=== PATIENT | female | born 1945 | race Caucasian/White ===

== ENCOUNTER 2018-10-26 08:21 | Inpatient (IN) ==
--- NOTE | 2018-10-11 16:58 | PAT Medication Instructions ---
Medication Instructions Date of Service October 12, 2018 Home Medications Ca-D3-mag is-snbe-obc-jimmy-bor [Calcium 600-D3 Plus] 1 tab PO QPM acetaminophen 1,000 mg PO QID NEEDED atorvastatin 40 mg PO PM cyanocobalamin (vitamin B-12) [Vitamin B-12] 1,000 mcg PO QPM diltiazem HCl [DILT-XR] 240 mg PO QAM gabapentin 600 mg PO TID glimepiride 2 mg PO QAM metformin 1,000 mg PO BID metoprolol tartrate 50 mg PO QAM pioglitazone 15 mg PO QAM raloxifene 60 mg PO QPM sitagliptin [Januvia] 100 mg PO QPM sumatriptan succinate [Imitrex] 50 mg PO DAILY NEEDED DO NOT take the morning of surgery glimepiride 2 mg PO QAM metformin 1,000 mg PO BID pioglitazone 15 mg PO QAM sumatriptan succinate [Imitrex] 50 mg PO DAILY NEEDED Take morning of surgery With a small sip of water, OTHERWISE NOTHING TO EAT OR DRINK AFTER MIDNIGHT: diltiazem HCl [DILT-XR] 240 mg PO QAM gabapentin 600 mg PO TID metoprolol tartrate 50 mg PO QAM acetaminophen 1,000 mg PO QID NEEDED (if needed; stop 4 hours before surgery) Take evening before surgery Ca-D3-mag ah-krou-dcr-jimmy-bor [Calcium 600-D3 Plus] 1 tab PO QPM atorvastatin 40 mg PO PM cyanocobalamin (vitamin B-12) [Vitamin B-12] 1,000 mcg PO QPM gabapentin 600 mg PO TID metformin 1,000 mg PO BID sitagliptin [Januvia] 100 mg PO QPM raloxifene 60 mg PO QPM acetaminophen 1,000 mg PO QID NEEDED (if needed) sumatriptan succinate [Imitrex] 50 mg PO DAILY NEEDED (if needed) Other Notes If you have any questions please call us at [phone] or [phone] or [phone] or [phone]
--- NOTE | 2018-10-12 09:01 | Anesthesiology Consultation ---
Date of Service October 12, 2018 Assessment & Plan (1) Encounter for pre-operative examination: - No previous anesthesia records available. Chart Review Chart Review: Acceptable Risk for Surgery and Patient seen in Pre Admission Testing Consults Requested none Teaching & Discussion Pre-Anesthesia Teaching/Discussion Notes: Instructed NPO after midnight before surgery, except medications with 15 cc of water. Medication instructions provided according to the PAT guidelines. History Surgery Operation Date: 10/26/18 13:05 Proposed Procedures p C4-C5 Anterior Cervical Discectomy and Fusion, C6 Corpectomy, Spinal Cord Monitoring - Marlo Treviño DO Height/Weight Height: 5 ft 3 in Weight: 88.2 kg Allergies Allergy/AdvReac Type Severity Reaction Status Date / Time aspirin AdvReac Mild GI BLEEDING Verified 10/10/18 08:45 Medications Home Medications Medication Instructions Recorded Confirmed Last Taken Ca-D3-mag hv-yrht-uor-jimmy-bor 1 tab PO QPM 10/10/18 10/10/18 Unknown [Calcium 600-D3 Plus] acetaminophen 1,000 mg PO QID PRN 10/10/18 10/10/18 Unknown atorvastatin 40 mg PO PM 10/10/18 10/10/18 Unknown cyanocobalamin (vitamin B-12) 1,000 mcg PO QPM 10/10/18 10/10/18 Unknown [Vitamin B-12] diltiazem HCl [DILT-XR] 240 mg PO QAM 10/10/18 10/10/18 Unknown gabapentin 600 mg PO TID 10/10/18 10/10/18 Unknown glimepiride 2 mg PO QAM 10/10/18 10/10/18 Unknown metformin 1,000 mg PO BID 10/10/18 10/10/18 Unknown metoprolol tartrate 50 mg PO QAM 10/10/18 10/10/18 Unknown pioglitazone 15 mg PO QAM 10/10/18 10/10/18 Unknown raloxifene 60 mg PO QPM 10/10/18 10/10/18 Unknown sitagliptin [Januvia] 100 mg PO QPM 10/10/18 10/10/18 Unknown sumatriptan succinate [Imitrex] 50 mg PO DAILY PRN 10/10/18 10/10/18 Unknown Past Medical History Medical History Diabetes mellitus, type 2 History of GI bleed Hx of migraine headaches R/T WEATHER RELATED Hx of renal cell cancer Hyperlipidemia Hypertension Spinal stenosis in cervical region Exercise / Class Metabolic Activity II 4-5 Yardwork/Stairs/Walk up hill (Swims daily, shops, housework. Able to climb stairs if holding on to banister. Poor balance due to neck problems. Denie s CP or SOB with activity. ) Past Family History Family History Sister Family history of diabetes mellitus Sister Family history of diabetes mellitus Brother Family history of diabetes mellitus Aunt Family history of diabetes mellitus Past Surgical History Surgical History History of esophagogastroduodenoscopy (EGD) History of kidney surgery RIGHT SIDE TO HAVE "CANCER REMOVED"- THAT WAS LAYING ON TOP OF KIDNEY 09/10/2015 [facility] History of left knee replacement History of total right knee replacement Hx of appendectomy Hx of colonoscopy Hx of removal of cyst X3 LEFT BREAST Nausea and vomiting after administration of anesthetic agent Past Anesthesia History No Hx of Anesthesia Complications and No Family Hx of Anesthesia Complications History of PONV History of PONV and Hx of Motion Sickness (If in back seat) Social History Smoking Status: Never smoker Do You Dip or Chew Tobacco: No Hx Alcohol Use: No Hx Substance Use: No Review of Systems Patient denies chest pain, shortness of breath, dyspnea on exertion, reflux, cough, wheezing, palpitations. +Joint Pain (Neck, Left Wrist) Physical Exam Vital Signs BP: 131/63 P: 60 R: 16 T: 98.0 SPO2: 98% on RA ENMT Thyromental Distance: > or= 3.5 Finger Breadths (4) Mallampati Class: I Neck normal visual inspection; neck extension not limited Respiratory normal respiratory effort Auscultation: lungs clear to auscultation bilaterally Cardiovascular Rate/Rhythm: regular rate and regular rhythm Heart Sounds: no murmur Vessels: no carotid bruit Neurologic moves all extremities Psychiatric Orientation: alert and oriented x 3 Testing Laboratory Results PT 10.3 Seconds (9.0-12.0) 10/12/18 09:20 INR 1.0 (0.9-1.1) 10/12/18 09:20 APTT 25.6 Seconds (21.0-31.0) 10/12/18 09:20 Blood Type O Positive 10/12/18 09:20 Antibody Screen NEGATIVE 10/12/18 09:20 [facility] 10/05/18 WBC: 8.67 H/H: 12.0/38.4 PLATELETS: 308 SODIUM: 142 POTASSIUM: 5.0 CHLORIDE: 100 CO2: 28 BUN: 17 CREATININE: 1.0 GLUCOSE: 132 H UA: +moderate leuk esterase, 10-19 WBCs - Negative Culture HgBA1C: 7.9 Electrocardiogram Date: 10/05/18 Findings: + NSR @ (60) and + no change from (03/02/17) Chest X-Ray Date: 10/05/18 Findings: + NAD Echocardiogram Date: 10/11/18 EF: 55-60% LV Function: normal RWMA: + none Other Findings: + diastolic dysfunction (Grade I) Moderate aortic valve sclerosis is present. Stress Test Date: 08/27/15 Type: DSE Findings: + WNL Resting EF: 55-59% Resting LV Function: dysfunctional (mildly abnormal (grade I)) Mild aortic valve sclerosis is present. The stress echo is negative for inducible ischemia. The stress test was terminated due to target HR was achieved. No symptoms were noted. The HR and BP response to pharmacologic stress was normal.
[2018-10-12 11:30] LABS: Partial Thromboplastin Ratio 0.9; Partial Thromboplastin Time 25.6 Seconds (21.0-31.0); Prothrombin Time 10.3 Seconds (9.0-12.0)
[~2018-10-26 08:21] MED LIST: ACETAMINOPHEN 500 MG TAB PO SCH; CEFAZOLIN 2000MG 2,000 MG/15 ML SYR IV SCH; CeleBREX 200 MG CAP PO SCH; GABAPENTIN 300 MG CAP PO SCH; LR 15ML/HR IV SCH; SCOPOLAMINE 1.5 MG TDSY TD SCH
[2018-10-26] MEDS ORDERED: LIDOCAINE HCL 2% 2 ML VIAL/AMP(20MG/ML) INFIL ONE (08:27)
[2018-10-26] MEDS ORDERED: SUCCINYLCHOLINE CHLORIDE 20 MG/ML 10 ML VIAL ONE (08:27)
[2018-10-26] MEDS ORDERED: ROCURONIUM BROMIDE 10 MG/ML 5 ML VIAL ONE (08:27)
[2018-10-26] MEDS ORDERED: ONDANSETRON INJ 2 MG/ML 2 ML VIAL ONE (08:27)
[2018-10-26] MEDS ORDERED: NEOSTIGMINE METHYLSULFATE 1 MG/ML 10ML VIAL ONE (08:27)
[2018-10-26] MEDS ORDERED: PROPOFOL IV EMULSION 10 MG/ML 20 ML VIAL IV ONE (08:27)
[2018-10-26] MEDS ORDERED: DEXAMETHASONE SOD INJ 4 MG/ML VIAL ONE (08:27)
[2018-10-26] MEDS ORDERED: GLYCOPYRROLATE 0.2 MG/ML VIAL ONE (08:27)
[2018-10-26] MEDS ORDERED: fentaNYL citrate 100 MCG/2 ML VIAL ONE ×2 (08:28→10:29)
[2018-10-26] MEDS ORDERED: KETAMINE HCL INJ 50 MG/ML 10 ML VIAL ONE (08:28)
[2018-10-26] MEDS ORDERED: MIDAZOLAM HCL 1 MG/ML 2ML VIAL ONE (08:28)
[2018-10-26] MEDS ORDERED: ONDANSETRON INJ 2 MG/ML 2 ML VIAL IV PRN ×2 (09:15→14:18)
[2018-10-26] MEDS ORDERED: ATROPINE SULFATE 0.1 MG/ML 10ML SYR IV PRN (09:15)
[2018-10-26] MEDS ORDERED: fentaNYL citrate 100 MCG/2 ML VIAL IV PRN (09:15)
[2018-10-26] MEDS ORDERED: ePHEDrine sulfate 50 MG/ML AMP IV PRN (09:15)
--- NOTE | 2018-10-26 09:16 | History & Physical Bridge Note ---
Date of Service October 26, 2018 History & Physical Bridge Note I have examined the patient, reviewed the History & Physical and in the interval since the performance of the History & Physical I have noted the following changes of clinical significance: no changes noted
--- NOTE | 2018-10-26 09:17 | History & Physical Report ---
Date of Service October 26, 2018 Assessment & Plan (1) Cervical stenosis of spinal canal: Anterior cervical discectomy and fusion C4-5, C6 corpectomy Present on Admission?: Yes History of Present Illness Chief Complaint: Neck and arm pain Primary Care Provider: Magaly Velasco DO This is a 73-year-old female presents with worsening neck and arm symptoms. After failing extensive course of nonoperative care is here for surgical intervention. Allergies Allergy/AdvReac Type Severity Reaction Status Date / Time aspirin AdvReac Mild GI BLEEDING Verified 10/26/18 08:51 Home Medications Home Medications Medication Instructions Recorded Confirmed Type Ca-D3-mag ks-kdwp-eui-jimmy-bor 1 tab PO QPM 10/10/18 10/26/18 History [Calcium 600-D3 Plus] acetaminophen 1,000 mg PO QID PRN 10/10/18 10/26/18 History atorvastatin 40 mg PO PM 10/10/18 10/26/18 History cyanocobalamin (vitamin B-12) 1,000 mcg PO QPM 10/10/18 10/26/18 History [Vitamin B-12] diltiazem HCl [DILT-XR] 240 mg PO QAM 10/10/18 10/26/18 History gabapentin 600 mg PO TID 10/10/18 10/26/18 History glimepiride 2 mg PO QAM 10/10/18 10/26/18 History metformin 1,000 mg PO BID 10/10/18 10/26/18 History metoprolol tartrate 50 mg PO QAM 10/10/18 10/26/18 History pioglitazone 15 mg PO QAM 10/10/18 10/26/18 History raloxifene 60 mg PO QPM 10/10/18 10/26/18 History sitagliptin [Januvia] 100 mg PO QPM 10/10/18 10/26/18 History sumatriptan succinate [Imitrex] 50 mg PO DAILY PRN 10/10/18 10/26/18 History Past Med/Surg History Family History Sister Family history of diabetes mellitus Sister Family history of diabetes mellitus Brother Family history of diabetes mellitus Aunt Family history of diabetes mellitus Social History Preferred Language: Mohawk Communication Ability: Effective Beliefs That Will Affect Care: None Current Living Situation: Spouse Feels Safe at Home: Yes Smoking Status: Never smoker Do You Dip or Chew Tobacco: No ; Second Hand Exposure: No ; Hx Alcohol Use: No Hx Substance Use: No Physical Exam Physical Exam: Patient is alert and oriented neurologically intact. Results & Data Vital Signs (Past 12 Hours) Vital Signs Temp Pulse Resp BP Pulse Ox 10/26/18 08:55 36.7 C 75 20 156/74 H 96
[2018-10-26] MEDS ORDERED: BACITRACIN INJ 50,000 UNIT VIAL ONE (09:30)
[2018-10-26] MEDS ORDERED: FLOSEAL HEMOSTATIC MATRIX 10ML TOP ONE (10:05)
--- NOTE | 2018-10-26 11:42 | Operative Report ---
Post Operative Report Pre & Post Diagnosis Operation Date: 10/26/18 10:05 Pre-Op Diagnosis: Cervical spinal stenosis with myeloradiculopathy Post-Op Diagnosis: Same Procedure Operation Date: 10/26/18 10:05 Actual Procedures #1 Anterior cervical discectomy with bilateral foraminotomies C4-5. #2 anterior cervical corpectomy C6. #3 anterior cervical arthrodesis C4-C5 and C5- C7. #4 placement of Spira titanium cage 7 mm in height at C4-5 and 21 mm in height at C5-C7. #5 placement of locally harvested morselized autograft combined with DBM in the interbody cage. #6 application of colvin plate and screws from C4-C7. Surgeon Marlo Treviño, DO Human Resource Advisor Gin Romeo Estimated Blood Loss 100 Findings Consistent with Post-Op Diagnosis Specimens None Indications This is a 73-year-old female who presents with above-mentioned diagnosis after failing extensive course of nonoperative care like to undergo the above- mentioned procedure. Description of Procedure Patient was met with identified and informed consent obtained. Patient was then taken to the operative suite underwent intubation placed in supine position on the Pino table with head Tapia head paper tester. All bony prominences well- padded eyes inspected to ensure no external pressure placed upon them. This point the anterior cervical spine was prepped and draped in normal sterile fashion. We then identified the C5-6 disc patient transverse incision was placed along the right anterior aspect of the cervical spine overlying this region. Sharp dissection with the assistance of bipolar electric arteries performed down to and exposing the anterior cervical spine from C4-C7. Self- retaining retractors in place. And then performed a complete discectomy of C5-6 out to the uncovertebral joints bilaterally followed by C6-7. Diamond distracting pins were then placed in C5 and C7 to distract across the C6 vertebral body. A complete corpectomy was then performed including removal of all posterior annular fibers longitudinal ligament bilateral foraminotomies to address severe stenosis. Endplates were then burred to subcortical bleeding bone and a 21 mm titanium cage filled with locally harvested morselized autograft and DBM tapped in position. Then proceeded to see 4 5. Again complete discectomy was performed out to the uncovertebral joints bilaterally. I removed all posterior annular fibers and longitudinal ligament bilateral foraminotomies pleaded. The endplates were then burred to subcortical bleeding bone and a 7 mm titanium spiral cage filled with locally harvested morselized autograft and DBM tapped in position. All distraction apparatus was removed and a colvin plate and screws applied with the assistance of fluoroscopy. The incision was then copiously irrigated explored to ensure no demonstration bleeding. A 15 round LASHON drain inserted. The incision was then closed with 2 Vicryl in the fascia for Monocryl for final closure. Steri-Strip sterile dressings placed. Patient awakened taken to PACU stable condition. Please note Gin Romeo present throughout the entire procedure involved the patient positioning complex portions of the surgery and final skin closure. Lastly spinal cord monitoring was utilized that procedure no changes noted. I attest to the content of the Intraoperative Record and any orders documented therein. Any exceptions are noted below.
--- NOTE | 2018-10-26 12:24 | Fluoroscopy Report ---
FL cervical 2-3V CLINICAL HISTORY: C4-C5 ACDF, C6 CORPECTOMY COMPARISON STUDY: None. FLUOROSCOPY TIME: 14 seconds.. FINDINGS: 3 fluoroscopic spot images of the cervical spine demonstrate anterior cervical discectomy a nd fusion from C4 through C7 with a C6 corpectomy and metallic cage. The hardware appears intact. IMPRESSION: Fluoroscopy provided for C4-C7 ACDF. Electronically signed by: Fredo Lopez M.D. 10/26/2018 12:22 PM
[2018-10-26] MEDS ORDERED: PROMETHAZINE HCL 6.25 MG in SODIUM CHLORIDE 0.9% 50 ML IV ONE (13:00)
[2018-10-26] MEDS ORDERED: NovoLIN-R INSULIN PER UNIT CHARGE ONE (13:24)
--- NOTE | 2018-10-26 13:42 | Anesthesiology Progress Note ---
Date of Service October 26, 2018 Anesthesia Post Procedure Vital Signs Vital Signs: Temp Pulse Pulse Resp BP Pulse Ox 10/26/18 13:18 96.8 F L 60 15 159/71 H 96 10/26/18 13:05 65 15 146/70 H 96 10/26/18 12:55 55 L 14 157/74 H 95 10/26/18 12:45 56 L 15 158/73 H 94 10/26/18 12:35 61 14 162/70 H 96 10/26/18 12:25 66 18 160/81 H 95 10/26/18 12:15 66 18 159/85 H 95 10/26/18 12:05 64 18 164/80 H 96 10/26/18 11:58 98.4 F 73 16 182/82 H 95 10/26/18 08:55 98.1 F 75 20 156/74 H 96 Transfer of Care Handoff Completed per policy Notes Mental Status: alert / awake / arousable and participated in evaluation Patient Amnestic to Procedure: Yes Nausea / Vomiting: adequately controlled Pain: adequately controlled Airway Patency, RR, SpO2: stable & adequate BP & HR: stable & adequate Hydration State: stable & adequate Anesthetic Complications: no major complications apparent and Pt Satisfied with anesthetic care
[2018-10-26] MEDS ORDERED: RACEPINEPHRINE 2.25% NEBU SOLN 0.5 ML VIAL INH PRN (14:18)
[2018-10-26] MEDS ORDERED: DiphenhydrAMINE HCL 50 MG/ML VIAL IV PRN (14:18)
[2018-10-26] MEDS ORDERED: DEXAMETHASONE SOD PHOSPHATE 8 MG in SYRINGE 0 ML IV PRN (14:18)
[2018-10-26] MEDS ORDERED: SODIUM CHLORIDE 0.9% 1000ML 1,000 ML IV SCH (14:18)
[2018-10-26] MEDS ORDERED: SUMAtriptan succinate 50 MG TAB PO PRN (14:18)
[2018-10-26] MEDS ORDERED: LORazepam 0.5 MG TAB PO PRN (14:18)
[2018-10-26] MEDS ORDERED: ACETAMINOPHEN 500 MG TAB PO PRN (14:18)
[2018-10-26] MEDS ORDERED: LORazepam 0.5 MG/1 ML VIAL IV PRN (14:18)
[2018-10-26] MEDS ORDERED: NALOXONE HCL 0.4 MG/1 ML VIAL/CARP IV PRN (14:18)
[2018-10-26] MEDS ORDERED: DO NOT ADMINISTER PNEUMOCOCCAL VACCINE PRN (14:18)
[2018-10-26] MEDS ORDERED: OXYCODONE HCL IR 5 MG TAB (IMMEDIATE RELEASE) PO PRN (14:18)
[2018-10-26] MEDS ORDERED: DO NOT ADMINISTER FLU VACCINE PRN (14:18)
[2018-10-26] MEDS ORDERED: ACETAMINOPHEN 1,000 MG/100 ML VIAL IV PRN (14:18)
[2018-10-26] MEDS ORDERED: HYDROmorphone INJ 0.5 MG/0.5 ML SYR IV PRN (14:18)
[2018-10-26] MEDS ORDERED: MAGNESIUM HYDROXIDE SUSP 30 ML UDC PO PRN (14:18)
[2018-10-26] MEDS ORDERED: GLUCAGON FOR INJ 1 MG VIAL SQ PRN (15:13)
[2018-10-26] MEDS ORDERED: CARBOHYDRATES FOR HYPOGLYCEMIA PO PRN (15:13)
[2018-10-26] MEDS ORDERED: GLUCOSE 40% GEL 15 GM TUBE PO PRN (15:13)
[2018-10-26] MEDS ORDERED: GLUCOSE 10 TABS/TUBE PO PRN (15:13)
[2018-10-26] MEDS ORDERED: DEXTROSE 50% 50 ML SYRINGE IV PRN (15:13)
[2018-10-26] MEDS ORDERED: DOCUSATE SODIUM 100 MG CAP PO PRN (15:36)
--- NOTE | 2018-10-26 15:37 | Hospitalist Consultation ---
Date of Consultation October 26, 2018 Assessment & Plan (1) Spinal stenosis in cervical region: s/p ACDF by Dr. Treviño today - post-operative management including pain control, DVT prophylaxis per primary service (2) Diabetes mellitus, type 2: Last A1c on 10/05/18 was 7.9. Pt on four oral medications at home. Discussed with pt the use of insulin while admitted and she is agreeable - HOLD oral meds - Start baseline Lantus 12 units BID and sliding scale insulin - will adjust as needed - BSG ACHS - Diabetic diet (3) Diabetic neuropathy: - Continue outpatient gabapentin (4) B12 deficiency: - Continue vitamin B12 supplementation (5) Hx of migraine headaches: - Uses sumitriptan prn as outpatient (6) Hyperlipidemia: - Continue outpatient atorvastatin (7) Hypertension: - Continue outpatient Lopressor (pt took this AM) and monitor while admitted. Currently mildly elevated but pt reports being in pain. (8) Senile osteoporosis: - Pt is on raloxifene as outpatient Pt was seen and examined with collaborating physician, Dr. Schmitz. Plan of care discussed and as outlined above. Care to be assumed in the AM by Dr. Castillo. Thank you for this consultation. We will continue to follow pt with you. A member of the [facility] Hospitalist team is available 14/09 for any questions or concerns at [phone]. Julia Oneil PA-C Supervising Physician Co-Signing Physician Notes Patient is a 73-year-old female with history of diabetes, dyslipidemia, hypertension and other problems was seen and evaluated postop after having cervical discectomy for spinal stenosis with myeloradiculopathy. Patient is doing well postop. Neck pain is controlled. Denies any chest pain, shortness of breath, dizziness, nausea, abdominal pain. Reports mild sore throat. On exam patient is moderately built and nourished, no apparent distress, normocephalic atraumatic, neck--surgical site in dressing,+ drain, lungs are clear to auscultation, S1-S2, no murmur, abdomen soft nontender, chronic left lower extremity edema, grossly no focal neurological deficits. Patient is consulted for postop medical management. Pain control, activity, DVT prophylaxis per primary team. Monitor for postop anemia. Bowel regimen to prevent constipation. Diabetes--hold p.o. medications. Utilize insulin sliding scale, basal insulin while hospitalized. Monitor blood glucose levels. I personally reviewed the record. Patient is interviewed and examined at bedside. Patient's care is coordinated with Mariely Oneil PA-C . Please refer to the documentation above for details of patient's presentation and for discussion of other issues. History of Present Illness Reason for Consultation: Post-op Medical Management Attending Physician: Marlo Treviño, History of Present Illness This is a 73 y/o female with a PMH of diabetes, osteoporosis/cervical spinal stenosis, OA, migraine, LCIS of breast, renal cell carcinoma, HTN, dyslipidemia, and B12 deficiency who underwent ACDF by Dr. Treviño today. We have been consulted for post-operative medical management. Pt is seen post-operatively on the floor. When asked how she is doing she states "slowly waking up." At present, she complaints of some posterior neck pain as well as a mild CROWE and sore throat. She reports nausea post-operatively for which she was given medications with some improvement. At present, her appetite is decreased but she is trying small amounts of clear liquids when seen. She denies chest pain, palpitations, dyspnea, vomiting, numbness/tingling in extremities, abd pain or dysphagia. Her diabetes is managed with oral hypoglycemics as outpatient. She has only received insulin during admissions/around times of surgeries. Her last A1c was 10/05/18 and was 7.9. Allergies Allergy/AdvReac Type Severity Reaction Status Date / Time aspirin AdvReac Mild GI BLEEDING Verified 10/26/18 08:51 Home Medications Home Medications Medication Instructions Recorded Confirmed Type acetaminophen 1,000 mg PO QID PRN 10/10/18 10/26/18 History atorvastatin 40 mg PO PM 10/10/18 10/26/18 History cyanocobalamin (vitamin B-12) 1,000 mcg PO QPM 10/10/18 10/26/18 History [Vitamin B-12] diltiazem HCl [DILT-XR] 240 mg PO QAM 10/10/18 10/26/18 History gabapentin 600 mg PO TID 10/10/18 10/26/18 History glimepiride 2 mg PO QAM 10/10/18 10/26/18 History metformin 1,000 mg PO BID 10/10/18 10/26/18 History metoprolol tartrate 50 mg PO QAM 10/10/18 10/26/18 History pioglitazone 15 mg PO QAM 10/10/18 10/26/18 History raloxifene 60 mg PO QPM 10/10/18 10/26/18 History sitagliptin [Januvia] 100 mg PO QPM 10/10/18 10/26/18 History sumatriptan succinate [Imitrex] 50 mg PO DAILY PRN 10/10/18 10/26/18 History Calcium 600 600 mg PO DAILY 10/26/18 10/26/18 History Vitamin D3 1,000 units PO DAILY 10/26/18 10/26/18 History Patient History Family History Sister Family history of diabetes mellitus Sister Family history of diabetes mellitus Brother Family history of diabetes mellitus Aunt Family history of diabetes mellitus Social History Preferred Language: [place]ese Communication Ability: Effective Beliefs That Will Affect Care: None Current Living Situation: Spouse Feels Safe at Home: Yes Smoking Status: Never smoker Do You Dip or Chew Tobacco: No ; Second Hand Exposure: No ; Hx Alcohol Use: No Hx Substance Use: No Review of Systems Review of Systems: All systems reviewed & are unremarkable except as noted in HPI & below Constitutional: + anorexia; no fever and no chills Eyes: no diplopia and no worsening vision Ear, Nose, Mouth, Throat: + sore throat; no dysphagia Respiratory: no cough, no dyspnea and no wheezing Cardiovascular: + edema (chronic left > right LE edema); no chest pain, no palpitations, no lightheadedness and no calf pain Gastrointestinal: + nausea; no abdominal pain, no vomiting and no diarrhea/loose stools Genitourinary: no dysuria and no hematuria Musculoskeletal: + neck pain; no back pain Integumentary: no rash and no urticaria Neurologic: + headache(s) (mild); no paresthesia (in upper extremities) Physical Exam Constitutional: WD/WN, vitals as above + obese; no acute distress Eyes: + anicteric sclerae ENMT: external ear and nose normal, oropharynx normal Neck: Dressing C/D/I anterior neck with drain in place - small amount of sanguinous drainage Respiratory: normal respiratory effort, lungs clear to auscultation Auscultation: no rales, no rhonchi and no wheezes Cardiovascular: Rate/Rhythm: regular rate and regular rhythm Heart Sounds: no gallop, no murmur and no cardiac rub Extremities: + edema (left > right non-pitting - ANGELI stockings in place); no calf tenderness Gastrointestinal (Abdomen): Inspection/Auscultation: normal bowel sounds; abdomen not distended Percussion/Palpation: abdomen soft; abdomen nontender Musculoskeletal: Head/Neck/Chest: normocephalic and head atraumatic Extremities: no cyanosis and no clubbing Skin: no rashes, warm and dry no jaundice Neurologic: moves all extremities; no focal motor deficits Sensation to light touch intact bilaterally upper extremities Psychiatric: A+Ox3, euthymic affect Results & Data Vital Signs (Past 12 Hours) Vital Signs Temp Pulse Pulse Resp BP Pulse Ox Pulse Ox 10/26/18 15:31 77 18 96 10/26/18 15:15 76 18 158/81 H 96 10/26/18 14:45 36.2 C L 68 14 169/72 H 96 10/26/18 14:15 36.4 C L 70 14 158/69 H 96 96 10/26/18 13:35 65 15 153/73 H 97 10/26/18 13:25 70 16 162/76 H 96 10/26/18 13:15 36.0 C L 60 15 159/71 H 96 10/26/18 13:05 65 15 146/70 H 96 10/26/18 12:55 55 L 14 157/74 H 95 10/26/18 12:45 56 L 15 158/73 H 94 10/26/18 12:35 61 14 162/70 H 96 10/26/18 12:25 66 18 160/81 H 95 10/26/18 12:15 66 18 159/85 H 95 10/26/18 12:05 64 18 164/80 H 96 10/26/18 11:58 36.9 C 73 16 182/82 H 95 10/26/18 08:55 36.7 C 75 20 156/74 H 96 Laboratory Results 10/12/18 10/12/18 09:20 09:20 PT 10.3 INR 1.0 APTT 25.6 Blood Type O Positive Antibody Screen NEGATIVE (1) Diabetic neuropathy Diabetes mellitus complication detail: diabetic polyneuropathy Diabetes mellitus type: type 2 Qualified Code(s): E11.42 - Type 2 diabetes mellitus with diabetic polyneuropathy (2) Diabetes mellitus, type 2 Diabetes mellitus complication detail: with unspecified neuropathy Diabetes mellitus complication status: with neurologic complications Diabetes mellitus longterm insulin use: without continuous churn buttermaker use Qualified Code(s): E11.40 - Type 2 diabetes mellitus with diabetic neuropathy, unspecified (3) Hyperlipidemia Hyperlipidemia type: unspecified Qualified Code(s): E78.5 - Hyperlipidemia, unspecified (4) Hypertension Hypertension type: essential hypertension Qualified Code(s): I10 - Essential (primary) hypertension
[2018-10-26] MEDS ORDERED: CHECK SCOPOLAMINE PATCH PLACEMENT SCH (16:00)
[2018-10-26] MEDS: GABAPENTIN 600 MG TAB PO SCH ×2 (16:08→21:04)
[2018-10-26] MEDS: CEFAZOLIN 2000MG 2,000 MG/15 ML SYR IV SCH (17:34)
[2018-10-26] MEDS: INSULIN ASPART 100 UNITS/ML 3 ML PEN SC SCH ×2 (18:40→21:22)
[2018-10-26] MEDS ORDERED: CALCIUM 600MG + VIT D 400 IU TAB PO SCH (21:00)
[2018-10-26] MEDS ORDERED: ATORVASTATIN 40 MG TAB PO SCH (21:00)
[2018-10-26] MEDS ORDERED: CYANOCOBALAMIN 500 MCG TABLET (VITAMIN B-12) PO SCH (21:00)
[2018-10-26] MEDS ORDERED: RALOXIFENE HCL 60 MG TAB PO SCH (21:00)
[2018-10-26] MEDS ORDERED: SITAGLIPTIN PHOSPHATE 100 MG TAB PO SCH (21:00)
[2018-10-26] MEDS: INSULIN GLARGINE SOLOSTAR 100 UNITS/ML 3 ML PEN SC SCH (21:23)
[2018-10-27] MEDS: CEFAZOLIN 2000MG 2,000 MG/15 ML SYR IV SCH ×2 (01:26→09:35)
[2018-10-27] MEDS ORDERED: GLIMEPIRIDE 2 MG TAB PO SCH (07:30)
[2018-10-27] MEDS: GABAPENTIN 600 MG TAB PO SCH (08:16)
--- NOTE | 2018-10-27 08:48 | Discharge Summary ---
Date of Service October 27, 2018 Admission HPI Per Admitting Provider This is a 73-year-old female presents with worsening neck and arm symptoms. After failing extensive course of nonoperative care is here for surgical intervention. Principal Diagnosis Cervical spinal stenosis with myeloradiculopathy Discharge Data Allergies Allergy/AdvReac Type Severity Reaction Status Date / Time aspirin AdvReac Mild GI BLEEDING Verified 10/26/18 08:51 Consultations 10/26/18 14:18 Consult Hospitalist Routine Procedures Performed Operation Date: 10/26/18 10:05 Actual Procedures p C4-C5 Anterior Cervical Discectomy and Fusion, C6 Corpectomy, Spinal Cord Monitoring, placement of interbody C4-5 - Marlo Treviño DO Ordered Studies 10/26/18 10:05 FL cervical 2-3V Routine FL fluoroscopy <1hr Routine Hospital Course (1) Cervical stenosis of spinal canal: Patient underwent anterior cervical corpectomy discectomy and fusion tolerated as well as taken orthopedic for postoperative. Postop day 1 she is swallowing well tolerating fluids. No hoarseness. Arm symptoms markedly improved. Strength intact to testing. LASHON drain decreasing appropriately. Subsequently discharged home. Discharge orders instructions can be found chart for further review. Total Time Total Time Spent Total Time Spent (In Minutes): 20 minutes Discharge Plan Discharge Items Patient Disposition: Home - Self-Care Reason For Visit: Spinal Stenosis, Cervical Region Discharge Diagnosis: Cervical spinal stenosis with myeloradiculopathy Discharge Goals: Decrease discomfort Activity: Per 'Additional Instructions' section Non-emergency contact: Primary Care Provider Call non-emergency contact if: you have any medication questions Follow-up/Referrals: Magaly Velasco DO [Primary Care Provider] - Diet: Regular Addtl Provider Instructions: ACTIVITY RECOMMENDATIONS: SELF CARE INSTRUCTIONS AFTER CERVICAL FUSIONS 1. No smoking. Smoking drastically decreases the chance of a solid fusion. 2. No bending, lifting more than 5 pounds, or twisting (roll like a log when turning in bed). 3. You may shower 3 days after surgery. Thoroughly dry wound. Do not soak in the tub. 4. Cervical collar: Must be worn at all times including sleeping. You may remove the brace only to bath, eat and if you are sitting in a recliner. 5. Please walk as much as you can for exercise. Gradually increase the distance that you walk as your endurance increases. SPECIAL CARE INSTRUCTIONS: VERY IMPORTANT TO READ AND REVIEW A. Do not take any anti-inflammatory medications (i.e. Indocin, Advil, Aspirin, Naprosyn, Aleve, Motrin, etc.) as these may inhibit the chance of a solid fusion. Tylenol is okay to take. B. Your surgical incision has been closed with a cosmetic suture under the skin that will dissolve in about 6 weeks. In 14 days, you can use a pair of clean scissors and cut the suture that is left outside of the skin at the ends of your incision. C. Complications are uncommon, but please contact us if you have any signs or symptoms of: 1. wound infection (fever higher than 102.5 degrees F, redness, separation of wound, drainage, or increasing pain from the incision) 2. blood clots in legs (pain, swelling, redness and warmth in legs) 3. urinary tract infection (fever higher than 102.5 degrees, burning upon urination or increased frequency of urination) 4. nerve problems (inability to walk on your toes or heels, numbness, loss of bowel or bladder control) 5. any other symptoms that concern you. D. Please call the office at if you have any concerns or questions about your operation or recovery. MANAGING PAIN AFTER SPINAL SURGERY 1. Narcotic medication is intended for short-term use and will be provided for surgical pain. Surgical pain usually lasts for a period of 4-6 weeks. Narcotic medication includes Percocet, Vicodin, Darvocet, Tylenol #3 or Lortab. 2. Longer-term pain is more appropriately treated with non-narcotic medication such as Tylenol ES. 3. Muscle spasm is not appropriately treated with narcotics. Muscle relaxers such as Soma, Flexeril or Skelaxin can be used along with Tylenol ES. 4. Remember that we all live with some "aches and pains". This is not unusual or uncommon after an injury or as we get older. 5. We will provide appropriate medication within the normal guidelines of their prescribed use. We will also be very cautious and aware of potential abuse and extended duration of patients' medication needs. 6. Please allow 2-3 days to process refills. Prescriptions will not be mailed but must be picked up at the office. FOLLOW UP VISIT: Keep your scheduled follow-up appointment. Any questions, please call the office at . Prescriptions: New oxycodone 5 mg Tablet 5 mg PO Q4H PRN (Reason: Pain) Qty: 2 RF: 0 Continued pioglitazone 15 mg Tablet 15 mg PO QAM RF: 0 atorvastatin 40 mg Tablet 40 mg PO PM RF: 0 gabapentin 600 mg Tablet 600 mg PO TID RF: 0 diltiazem HCl [DILT-XR] 240 mg Capsule,Ext.Rel 24h Degradable 240 mg PO QAM RF: 0 sumatriptan succinate [Imitrex] 50 mg Tablet 50 mg PO DAILY PRN (Reason: SINUS HEADACHES) RF: 0 cyanocobalamin (vitamin B-12) [Vitamin B-12] 1,000 mcg Tablet 1,000 mcg PO QPM RF: 0 acetaminophen 500 mg Tablet 1,000 mg PO QID PRN (Reason: Pain) RF: 0 glimepiride 2 mg Tablet 2 mg PO QAM RF: 0 metformin 1,000 mg Tablet 1,000 mg PO BID RF: 0 metoprolol tartrate 50 mg Tablet 50 mg PO QAM RF: 0 raloxifene 60 mg Tablet 60 mg PO QPM RF: 0 Januvia 100 mg Tablet 100 mg PO QPM RF: 0 Calcium 600 600 mg PO DAILY RF: 0 Vitamin D3 1,000 units PO DAILY RF: 0 Stand-Alone Forms: [facility] Discharge Orders: Discharge Order (Routine); Ordered 10/27/18 Ordered By: Marlo Treviño Admission Data Admit Date/Time: 10/26/18 11:47 Attending Provider: Marlo Treviño Admit Provider: Marlo Treviño Primary Care Provider: Magaly Velasco Other Providers: Dg Castillo Service: Surgical Services
[2018-10-27] MEDS ORDERED: METOPROLOL TARTRATE 50 MG TAB PO SCH (09:00)
[2018-10-27] MEDS ORDERED: dilTIAZem HCL 240 MG CAPCR PO SCH (09:00)
[2018-10-27] MEDS ORDERED: PIOGLITAZONE HCL 15 MG TAB PO SCH (09:00)
[2018-10-27] MEDS: INSULIN ASPART 100 UNITS/ML 3 ML PEN SC SCH ×2 (09:23→12:31)
[2018-10-27] MEDS: INSULIN GLARGINE SOLOSTAR 100 UNITS/ML 3 ML PEN SC SCH (09:24)
[2018-10-28] MEDS ORDERED: POLYETHYLENE (MIRALAX) 17 GM PACK PO PRN (11:46)
[2018-10-28] MEDS ORDERED: BISACODYL 5 MG TABEC PO PRN (11:46)
== END 2018-10-27 13:34 | disposition home or self-care (01) | DRG 472 ==
LOC: ASU 08:21 → 3E 11:47

== ENCOUNTER 2018-10-29 21:48 | Observation (INO) ==
[2018-10-29] MEDS: NITROGLYCERIN SL 0.4 MG/TAB TAB SL PRN ×2 (22:13→22:47)
[2018-10-29 22:16] LABS: Basophils # (auto) 0.01 K/uL (0-0.2); Basophils % (auto) 0.1 %; Eosinophils # (auto) 0.09 K/uL (0-0.5); Eosinophils % (auto) 0.8 %; Hematocrit (blood only) 34.9 % (37-47); Hemoglobin 11.8 g/dL (12.0-16.0); Immature Granulocytes # (auto) 0.04 K/uL (0.00-0.02); Immature Granulocytes % (auto) 0.4 %; Lymphocytes # (auto) 2.26 K/uL (1.2-3.4); Mean Corpuscular Hemoglobin 29.3 pg (25-34); Mean Corpuscular Hgb Conc 33.8 g/dL (32-36); Mean Corpuscular Volume 86.6 fL (80-100); Mean Platelet Volume 10.5 fL (7.4-10.4); Monocytes # (auto) 1.05 K/uL (0.11-0.59); Monocytes % (auto) 9.3 %; Neutrophils # (auto) 7.83 K/uL (1.4-6.5); Neutrophils % (auto) 69.4 %; Platelet Count 279 K/uL (130-400); RDW Coefficient of Variation 14.1 % (11.5-14.5); RDW Standard Deviation 44.5 fL (36.4-46.3); Red Blood Count 4.03 M/uL (4.2-5.4); White Blood Count 11.28 K/uL (4.8-10.8)
--- NOTE | 2018-10-29 22:16 | XRay Report ---
XR chest 1V portable CLINICAL HISTORY: Atypical chest pain COMPARISON STUDY: No previous studies for comparison. FINDINGS: The heart is mildly enlarged. There is mild vascular prominence without evidence for overt failure. There are mild basilar atelectatic changes. There are no large pleural effusions. Postsurgic al changes are present within the cervical spine.[ IMPRESSION: 1. Cardiomegaly with mild vascular/interstitial prominence. No overt failure 2. Mild basilar atelectasis. Electronically signed by: Sung Messer M.D. 10/29/2018 10:14 PM
[2018-10-29 22:25] LABS: iSTAT Creatinine 0.7 mg/dl (0.6-1.3); iSTAT Hemoglobin 12.6 g/dl (12.0-16.0); iSTAT Ionized Calcium 1.14 mmol/l (1.12-1.32); iSTAT Potassium 3.7 mEq/L (3.3-5.0)
[2018-10-29 22:33] LABS: Alanine Aminotransferase 16 U/L (12-78); Albumin Level 3.1 gm/dl (3.4-5.0); Aspartate Aminotransferase 13 U/L (15-37); Blood Urea Nitrogen 10 mg/dl (7-18); Calcium 9.5 mg/dl (8.5-10.1); Carbon Dioxide 25 mmol/L (21-32); Chloride 99 mmol/L (98-107); Est GFR (African American) 82.9; Est GFR (Non-African American) 71.5; Glucose 201 mg/dl (70-99); Lipase 135 U/L (73-393); Potassium 3.7 mmol/L (3.5-5.1); Sodium 134 mmol/L (136-145)
[2018-10-29 22:36] LABS: Albumin Globulin Ratio 0.7 (0.9-2); Alkaline Phosphatase 63 U/L (45-117); Bilirubin,Total 0.8 mg/dl (0.2-1); Globulin 4.7 gm/dl (2.5-4.0); Total Protein 7.8 gm/dl (6.4-8.2)
[2018-10-29] MEDS ORDERED: fentaNYL citrate 100 MCG/2 ML VIAL IV STA (23:05)
[2018-10-29] MEDS ORDERED: ONDANSETRON INJ 2 MG/ML 2 ML VIAL IV STA (23:05)
[2018-10-29] MEDS ORDERED: OPTIRAY 320 125ml IV PRN (23:23)
[2018-10-30] MEDS ORDERED: NITROGLYCERIN 2% OINTMENT 30GM TUBE EXT ONE (00:28)
[2018-10-30] MEDS ORDERED: POLYETHYLENE (MIRALAX) 17 GM PACK PO PRN (02:20)
[2018-10-30] MEDS ORDERED: ACETAMINOPHEN 500 MG TAB PO PRN (02:20)
[2018-10-30] MEDS ORDERED: NITROGLYCERIN SL 0.4 MG/TAB TAB SL PRN (02:20)
[2018-10-30] MEDS ORDERED: ACETAMINOPHEN 325 MG TAB PO PRN (02:20)
[2018-10-30] MEDS ORDERED: OXYCODONE HCL IR 5 MG TAB (IMMEDIATE RELEASE) PO PRN (02:20)
[2018-10-30] MEDS ORDERED: ONDANSETRON INJ 2 MG/ML 2 ML VIAL IV PRN (02:20)
--- NOTE | 2018-10-30 02:28 | History and Physical Report ---
DATE OF ADMISSION: 10/29/2018 CHIEF COMPLAINT: Chest pain. HISTORY OF PRESENT ILLNESS: This is a 73-year-old female with past medical history significant for type 2 diabetes, hypertension, fatty liver, B12 deficiency, senile osteoporosis, osteoarthritis, history of cerebral meningioma, migraines, history of renal cell carcinoma, history of lobular carcinoma in situ of breast, history of cervical spinal stenosis, status post cervical spine surgery last Wednesday, was discharged home on Wednesday. She is still in a neck collar. The patient says since going home, she was doing okay, but then she developed during today'snight some chest pressure like feeling in the middle of the chest associated with some tingliness in the left hand and some numbness in the left leg. Before surgery, she has some tingliness and numbness in the left side that has not much improved, but today it got worse, therefore got worried and came to the hospital. Initial EKG showed some mild ST depression in leads V4, V5, but repeat EKG shows resolved st depressions with some nonspecific ST-T changes. Point of care troponin is negative. Given nitro in the ER, she still has some chest discomfort, starting on nitro paste. She does have headache now. No dizziness, no blurred visions, no earache, has some sore throat from the ETT tube during surgery. Some difficulty swallowing from her sore throat. She is on soft diet. Appetite is not that great. She was short of breath when this episode happened. She still feels some short of breath. Once in a while, she gets cough. Denies any fevers or chills, no nausea, no abdominal pain. Constipated with no bowel movements since last Wednesday, micturating fine. No pain while micturating. No hematuria. She has a chronic lower extremity edema. No rash. Currently resting comfortably and hemodynamically stable. ALLERGIES: ASPIRIN. PAST MEDICAL HISTORY: As mentioned above. PAST SURGICAL HISTORY: Left total knee arthroplasty, right total knee arthroplasty, left breast lesion excision, cauterization of ectropion, colonoscopy, EGDs, excision of breast lesion, knee arthroscopies, ligation of oviducts, partial removal of the kidney in 2016, tonsillectomy, adenoidectomy. MEDICATIONS: The patient is on oxycodone IR 5 mg p.o. q. 4 hours p.r.n., sumatriptan 50 mg p.o. p.r.n. migraines, metoprolol tartrate 50 mg p.o. daily, gabapentin 600 mg p.o. t.i.d., Januvia 100 mg p.o. daily, metformin 1000 mg p.o. b.i.d., glimepiride 2 mg p.o. daily, diltiazem XR 240 mg p.o. daily, Actos 50 mg p.o. daily, Evista 60 mg p.o. daily, Lipitor 40 mg p.o. daily, cyanocobalamin 1000 mcg daily, Tylenol 500 mg p.o. q. 6 hours p.r.n., calcium 600 mg p.o. daily, vitamin D 1000 units p.o. daily. FAMILY HISTORY: Significant for: Mother had arthritis. Father had MA. Brother had CAD. SOCIAL HISTORY: . No smoking, no alcohol, no drug use. REVIEW OF SYMPTOMS: As per HPI. Rest of review of systems is negative. PHYSICAL EXAMINATION: GENERAL: The patient is of moderate build, not in acute distress. VITAL SIGNS: Temperature 37.1, pulse 90, respiratory rate 17, blood pressure 157/92, oxygen 95% room air. HEENT: No pallor, no icterus. Pupils equal, round, reactive to light. Extraocular muscles intact. NECK: Neck collar. CARDIOVASCULAR: S1, S2 heard, regular rate and rhythm, no murmur, no gallop. RESPIRATORY SYSTEM: Normal AP diameter. No accessory muscle use. No wheezing, no crackles. ABDOMEN: Soft, bowel sounds present, nontender. No distention. CENTRAL NERVOUS SYSTEM: Cranial nerves II-XII grossly intact. Power 5/5 in upper extremities. Moves lower extremities. EXTREMITIES: Chronic lower extremity edema present, no erythema seen. LABORATORIES DATA: WBC is 11.2, hemoglobin 11.8, hematocrit 34.9, platelets 279. Sodium 134, potassium 3.7, chloride 99, CO2 of 25, BUN 10, creatinine 0.8, serum glucose 201, calcium 9.5, total bilirubin 0.8, AST 13, ALT 16, alkaline phosphatase 63. Point of care troponin less than 0.03. Lipase 135. IMAGING: Chest x-ray: No acute findings seen. CT of the chest, no PE, unofficial report. EKG: Shows normal sinus rhythm with rate of 80, nonspecific ST abnormality, mild ST depression in leads V4, V5. Repeat EKG, the ST depressions improved. ASSESSMENT AND PLAN: This is a 73-year-old female who presents with chest pain. 1. Chest pain, rule out acute coronary syndrome, risk factor of diabetes, hypertension, age, questionable ST depression in leads V4, V5 on intial EKG, improved on repeat ekg. Initial troponin is negative. Still has some chest discomfort. We will place on nitro paste 0.5 inch q. 6. Serial cardiac enzymes, echocardiogram, keep her n.p.o. and consult cardiology for further recommendations in a.m. 2. Still has some tingling and numbness, status post cervical spine surgery, on neck collar. She still has some tingliness and numbness in the left extremities, somewhat worse than before. We will consult orthopedics and may need PT/OT when the patient is stable. 3. Diabetes. Hold her home medications of glimepiride, Januvia, Metformin and Actos. We will place her on Lantus 5 units b.i.d., insulin sliding scale. Currently, the patient is n.p.o. We will follow HbA1c levels. Follow the blood sugars. 4. History of hypertension. Continue diltiazem and Lopressor. Monitor the blood pressure. 5. History of renal cancer, status post right partial nephrectomy. 6. History of migraine, on sumatriptan p.r.n. Continue her home pain medications. 7. History of vitamin B12 deficiency, on vitamin B12 supplements. 8. Deep venous thrombosis prophylaxis, SCDs. 9. Disposition: Admit to observation in tele floor. Expect discharge home and follow with her family doctor. Level 1 full code. PT and OT prior to discharge. Social Service will help with discharge planning. MISSAEL
[2018-10-30] MEDS ORDERED: GLUCOSE 40% GEL 15 GM TUBE PO PRN (02:45)
[2018-10-30] MEDS ORDERED: GLUCOSE 10 TABS/TUBE PO PRN (02:45)
[2018-10-30] MEDS ORDERED: DEXTROSE 50% 50 ML SYRINGE IV PRN (02:45)
[2018-10-30] MEDS ORDERED: CARBOHYDRATES FOR HYPOGLYCEMIA PO PRN (02:45)
[2018-10-30] MEDS ORDERED: GLUCAGON FOR INJ 1 MG VIAL SQ PRN (02:45)
[2018-10-30] MEDS ORDERED: MoRPHine SULFATE 4 MG/ML 1 ML CARP\\VIAL IV PRN (05:34)
[2018-10-30] MEDS: NITROGLYCERIN 2% OINTMENT 30GM TUBE EXT SCH ×4 (05:50→23:34)
[2018-10-30] MEDS ORDERED: LACTULOSE SYRUP 30 GM/45 ML UDP PO ONE (07:00)
[2018-10-30] MEDS ORDERED: BISACODYL 10 MG SUPP PR ONE (07:00)
[2018-10-30] MEDS: SODIUM CHLORIDE 0.9% 1000ML 1,000 ML IV SCH ×2 (07:49→22:33)
[2018-10-30] MEDS: dilTIAZem ER 120 MG CAPCR PO SCH (07:50)
[2018-10-30] MEDS: CHOLECALCIFEROL 1,000 UNITS TAB PO SCH (07:50)
[2018-10-30] MEDS: METOPROLOL TARTRATE 50 MG TAB PO SCH (07:50)
[2018-10-30] MEDS: GABAPENTIN 600 MG TAB PO SCH ×3 (07:50→20:15)
[2018-10-30] MEDS: CALCIUM 600MG + VIT D 400 IU TAB PO SCH (07:51)
[2018-10-30 08:25] LABS: Basophils # (auto) 0.01 K/uL (0-0.2); Basophils % (auto) 0.1 %; Eosinophils # (auto) 0.14 K/uL (0-0.5); Eosinophils % (auto) 1.3 %; Hematocrit (blood only) 35.4 % (37-47); Hemoglobin 11.7 g/dL (12.0-16.0); Immature Granulocytes # (auto) 0.05 K/uL (0.00-0.02); Immature Granulocytes % (auto) 0.5 %; Lymphocytes # (auto) 2.37 K/uL (1.2-3.4); Lymphocytes % (auto) 21.8 %; Mean Corpuscular Hgb Conc 33.1 g/dL (32-36); Mean Corpuscular Volume 87.6 fL (80-100); Mean Platelet Volume 10.1 fL (7.4-10.4); Monocytes # (auto) 0.94 K/uL (0.11-0.59); Monocytes % (auto) 8.7 %; Neutrophils # (auto) 7.34 K/uL (1.4-6.5); Neutrophils % (auto) 67.6 %; Platelet Count 275 K/uL (130-400); RDW Coefficient of Variation 14.2 % (11.5-14.5); RDW Standard Deviation 45.8 fL (36.4-46.3); Red Blood Count 4.04 M/uL (4.2-5.4); White Blood Count 10.85 K/uL (4.8-10.8)
[2018-10-30 08:42] LABS: BUN Creatinine Ratio 11.1 (10-20); Blood Urea Nitrogen 9 mg/dl (7-18); Calcium 9.3 mg/dl (8.5-10.1); Carbon Dioxide 28 mmol/L (21-32); Chloride 99 mmol/L (98-107); Creatinine Clr Calc Pharmacy 63.1 ml/min; Est GFR (African American) 84.2; Est GFR (Non-African American) 72.6; Glucose 205 mg/dl (70-99); Magnesium 1.8 mg/dl (1.8-2.4); Potassium 3.6 mmol/L (3.5-5.1); Sodium 136 mmol/L (136-145)
[2018-10-30 08:47] LABS: Troponin I < 0.015 ng/ml (0-0.045)
[2018-10-30] MEDS ORDERED: MAGNESIUM SULFATE / D5W 1 GM/100 ML BAG IV ONE (09:30)
--- NOTE | 2018-10-30 09:36 | Consultation ---
Date of Consultation October 30, 2018 Assessment & Plan (1) Cervical stenosis of spinal canal: Patient is currently undergoing a cardiac work-up in light of her symptoms but I do believe this is most likely related to her cervical spine. She has severe multilevel central stenosis preoperatively. She understands she might have continued numbness and paresthesia for quite some time while everything heals. Would ideally like to give her a dose or 2 of steroids but I understand she is a diabetic with a hemoglobin A1c of 7.9. I will leave this at the discretion of the hospitalist. Chest pain could have certainly, if not found to be cardiac in nature have been due to some possible acid reflux. This has resolved. She may have n.p.o. status removed and to try a soft diet. I will order x-rays to assess her hardware. No acute surgical indications at this point in time. We will continue to follow along. Supervising Physician Co-Signing Physician Notes Dr. Marlo Treviño History of Present Illness Requesting Physician: Dr. Chapman Reason for Consultation: Left greater than right upper extremity paresthesia and chest pain status post ACDF Attending Physician: Yohan Chapman MD History of Present Illness Susan is a pleasant 73-year-old female well-known to us. She is postoperative day 5 ACDF C4-C7. She had an uncomplicated postoperative course. She reports yesterday after dinner which was a soft diet of broth and Jell-O she had some substernal chest pain and she noticed paresthesias left greater than right hands and both feet. She does have established diabetic neuropathy affecting bilateral lower extremities. She presented to the emergency room and is currently undergoing a cardiac work-up. Symptoms are improved in her right hand. Preoperatively her left upper ex tremity had established paresthesia and numbness. She denies any shortness of breath. She is tolerating a soft diet. She is wearing her [place] J collar 14/09 with exception of eating and bathing at home. She amylase with a walker at home. Allergies Allergy/AdvReac Type Severity Reaction Status Date / Time aspirin AdvReac Mild GI BLEEDING Verified 10/29/18 22:16 Home Medications Home Medications Medication Instructions Recorded Confirmed Type Januvia 100 mg PO QPM 10/10/18 10/29/18 History acetaminophen 1,000 mg PO QID PRN 10/10/18 10/29/18 History atorvastatin 40 mg PO PM 10/10/18 10/29/18 History cyanocobalamin (vitamin B-12) 1,000 mcg PO QPM 10/10/18 10/29/18 History [Vitamin B-12] diltiazem HCl [DILT-XR] 240 mg PO QAM 10/10/18 10/29/18 History gabapentin 600 mg PO TID 10/10/18 10/29/18 History glimepiride 2 mg PO QAM 10/10/18 10/29/18 History metformin 1,000 mg PO BID 10/10/18 10/29/18 History metoprolol tartrate 50 mg PO QAM 10/10/18 10/29/18 History pioglitazone 15 mg PO QAM 10/10/18 10/29/18 History raloxifene 60 mg PO QPM 10/10/18 10/29/18 History sumatriptan succinate [Imitrex] 50 mg PO DAILY PRN 10/10/18 10/29/18 History oxycodone 5 mg PO Q4H PRN #20 tab 10/27/18 10/29/18 Rx calcium carbonate [Calcium 600] 600 mg PO DAILY 10/29/18 10/29/18 History cholecalciferol (vitamin D3) 1,000 unit PO DAILY 10/29/18 10/29/18 History [Vitamin D3] Patient History Medical History B12 deficiency Diabetes mellitus, type 2 Diabetic neuropathy Fatty liver History of GI bleed History of colon polyps 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 Hx of migraine headaches R/T WEATHER RELATED Hx of renal cell cancer Hyperlipidemia Hypertension Senile osteoporosis Spinal stenosis in cervical region Surgical History History of esophagogastroduodenoscopy (EGD) History of kidney surgery RIGHT SIDE TO HAVE "CANCER REMOVED"- THAT WAS LAYING ON TOP OF KIDNEY (partial right nephrectomy) 09/10/2015 [facility] History of left knee replacement History of tonsillectomy and adenoidectomy History of total right knee replacement History of tubal ligation Hx of appendectomy Hx of colonoscopy Hx of removal of cyst X3 LEFT BREAST Nausea and vomiting after administration of anesthetic agent Family History Sister Family history of diabetes mellitus Sister Family history of diabetes mellitus Brother Family history of diabetes mellitus Aunt Family history of diabetes mellitus Social History Preferred Language: Hebrew Communication Ability: Effective Fly Winder Required: No Beliefs That Will Affect Care: None Current Living Situation: Spouse Other Information That Helps Us Care for You: No Feels Safe at Home: Yes Safety Concerns: Feels Safe At This Time Smoking Status: Never smoker Do You Dip or Chew Tobacco: No ; Second Hand Exposure: No ; Tobacco Cessation Education Requested by Patient: No Hx Alcohol Use: No Hx Substance Use: No Review of Systems Review of Systems: All systems reviewed & are unremarkable except as noted in HPI & below Physical Exam Physical Exam: She is amatory with a walker and assistance of a nurse to a restroom when I entered. She is in no obvious distress. Alert and oriented x3. Dressing is clean dry and intact. This was removed for visual inspection. There is modest edema. No erythema. No drainage. [place] J is intact. Upper extremities 5/5 bilateral biceps, triceps, deltoid. Calves are soft nontender bilateral lower extremities. Motor testing strength is intact bilateral lower extremities. Results & Data Vital Signs (Past 12 Hours) Vital Signs Temp Pulse Pulse Pulse Resp BP BP 10/30/18 08:00 80 10/30/18 07:43 37.0 C 75 16 167/89 H 10/30/18 05:49 76 156/87 H 10/30/18 03:26 88 10/30/18 03:25 36.9 C 83 20 157/77 H 10/30/18 02:14 36.6 C 95 H 20 158/89 H 10/30/18 01:59 92 H 20 154/96 H 10/30/18 01:00 90 17 157/92 H 10/30/18 00:30 90 23 149/86 H 10/30/18 00:22 89 20 177/88 H 10/30/18 00:00 82 18 170/84 H 10/29/18 23:45 84 18 166/79 H 10/29/18 23:30 88 34 H 180/79 H 10/29/18 23:00 90 23 168/87 H 10/29/18 22:46 94 H 21 10/29/18 22:30 89 23 158/74 H 10/29/18 22:17 93 H 25 H 152/81 H 10/29/18 22:15 97 H 36 H 151/82 H 10/29/18 22:13 94 H 24 139/79 10/29/18 22:12 96 H 27 H 139/79 10/29/18 22:08 99 H 24 166/79 H 10/29/18 22:06 85 28 H 166/79 H 10/29/18 22:05 88 30 H 10/29/18 21:50 37.1 C 89 18 155/88 H Pulse Ox 10/30/18 08:00 10/30/18 07:43 92 10/30/18 05:49 10/30/18 03:26 10/30/18 03:25 95 10/30/18 02:14 93 10/30/18 01:59 94 10/30/18 01:00 95 10/30/18 00:30 94 10/30/18 00:22 94 10/30/18 00:00 97 10/29/18 23:45 96 10/29/18 23:30 93 10/29/18 23:00 93 10/29/18 22:46 10/29/18 22:30 94 10/29/18 22:17 93 10/29/18 22:15 92 10/29/18 22:13 95 10/29/18 22:12 93 10/29/18 22:08 93 10/29/18 22:06 92 10/29/18 22:05 94 10/29/18 21:50 95
[2018-10-30] MEDS: INSULIN ASPART 100 UNITS/ML 3 ML PEN SC SCH ×4 (09:56→21:05)
[2018-10-30] MEDS: INSULIN GLARGINE SOLOSTAR 100 UNITS/ML 3 ML PEN SC SCH ×3 (09:57→21:04)
--- NOTE | 2018-10-30 10:15 | CT Scan Report ---
CT ANGIOGRAM OF THE CHEST CLINICAL HISTORY: Atypical chest pain. Recent cervical spine surgery. COMPARISON STUDY: Chest x-ray dated 10/29/2018. TECHNIQUE: Following the IV administration of 116 cc of Optiray 320, CT angiogram of the chest was pe rformed from the upper abdomen to the thoracic inlet utilizing the pulmonary embolus protocol. Images are reviewed in the axial, sagittal, and coronal planes. 3-D MIPS images are created and assessed. I V contrast was administered without complication. A dose lowering technique was utilized adhering to the principles of ALARA. The examination is degraded by streak artifact from the arms which could no t be elevated above the chest. There is also motion artifact. CT DOSE: 663.08 mGy.cm FINDINGS: Thyroid: The thyroid gland appears mildly enlarged and heterogeneous. Low-attenuation thyroid nodules measure up to 4 mm. Thoracic aorta: The thoracic aorta is normal in caliber and demonstrates standard 3-vessel arch anato my. No dissection is seen. Pulmonary vasculature: The main pulmonary arteries appear dilated suggesting pulmonary artery hyperte nsion. There are no filling defects identified in main, lobar, or segmental pulmonary branches to sug gest pulmonary embolus. Heart: The heart is mildly enlarged and without pericardial effusion. The coronary arteries are dense ly calcified. Lungs and pleural spaces: Evaluation of the lung parenchyma is modestly degraded by motion artifact. There are small pleural effusions with significant bibasilar atelectasis. No airspace consolidation i s seen typical for pneumonia. A calcified granuloma is noted at the left lung base. Minimal secretion s are noted in the trachea. Lower neck: There is inflammatory change identified within the visualized pharyngeal soft tissues and in the prevertebral soft tissues, likely due to recent surgery. No cervical adenopathy is seen. Mediastinum: There is no mediastinal lymphadenopathy. Mya: Clear. Axillae: There is no axillary lymphadenopathy. Upper abdomen: Partially visualized upper abdominal viscera is within normal limits. Skeletal structures: The skeletal structures are osteopenic. No lytic or blastic bony lesions are see n. Fusion hardware is noted in the lower cervical spine. Degenerative change and hyperkyphosis are no kenan in the thoracic spine. Arthritic change is seen in the shoulders. IMPRESSION: 1. There is no evidence of pulmonary embolus in the main, lobar, or segmental pulmonary arteries. 2. Small pleural effusions with bibasilar atelectasis. 3. There is no airspace consolidation typical for pneumonia. 4. Mild cardiomegaly. 5. Fusion hardware is noted in the lower cervical spine. There is significant inflammatory change inv olving the pharyngeal and prevertebral soft tissues. This is likely related to recent surgery and cli nical correlation will be essential. 6. Additional findings as above. Electronically signed by: Munir Keene M.D. 10/30/2018 10:13 AM
[2018-10-30 11:32] LABS: Folate (Folic Acid) 14.74 ng/ml (>5.38)
--- NOTE | 2018-10-30 12:03 | Hospitalist Progress Note ---
Date of Service October 30, 2018 Assessment & Plan (1) Cervical stenosis of spinal canal: paresthesia symptoms and numbness -This is a 73 year old female with cervical spine surgery on 10/26/18 because of Cervical spinal stenosis with myeloradiculopathy (#1 Anterior cervical discectomy with bilateral foraminotomies C4-5. #2 anterior cervical corpectomy C6. #3 anterior cervical arthrodesis C4-C5 and C5- C7. #4 placement of Spira titanium cage 7 mm in height at C4-5 and 21 mm in height at C5-C7. #5 placement of locally harvested morselized autograft combined with DBM in the interbody cage. #6 application of colvin plate and screws from C4-C7) -Patient at home had symptoms of chest pressure like feeling in the middle of the chest associated with some tingling in the left hand and some numbness in the left leg -Patient was evaluated by orthopedics on 10/30/18 and suggest these paresthesia symptoms and numbness symptoms are not unusual given patient's pre-op diagnosis and subsequent operation. Orthopedics service suggested trying trial of steroids. Have discussed with patient and she does not want to do steroid trial at this time -further imaging of the neck ordered by orthopedics -continue neck collar -serum magnesium 1.8: magnesium supplements ordered -adequate B12, folic acid and TSH levels History of vitamin B12 deficiency -continue vitamin B12 supplements. Chest pain -On CTA: There is no evidence of pulmonary embolus in the main, lobar, or segmental pulmonary arteries. -troponins serially negative -echocardiogram: no change compared to previous 10/11/18 echo. 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 -continue Lantus 5 units b.i.d., insulin sliding scale. -HbA1c pending Hypertension -Continue diltiazem and Lopressor History of migraine -no acute headaches at this time History of renal cancer, status post right partial nephrectomy in the past Deep venous thrombosis prophylaxis, SCDs. Full Code Subjective Patient seen and examined. Has been having tingling/cramping sensations of the hands and tingling of the feet but these sensations improving over today. Patient also reports yesterday's acute chest discomforts are gone.no headache. no dizziness. no abdomen pain. no vomiting. Physical Exam Constitutional: comfortable Eyes: PERRL, conjunctivae normal, anicteric sclerae EOM intact bilaterally ENMT: external ear and nose normal, oropharynx normal Neck: neck brace Respiratory: normal respiratory effort, lungs clear to auscultation Cardiovascular: Rate/Rhythm: regular rate and regular rhythm Gastrointestinal (Abdomen): normal bowel sounds, soft, nontender, no hepatosplenomegaly Musculoskeletal: Head/Neck/Chest: normocephalic and head atraumatic Neurologic: PERRL, EOMI, accommodation nl, no face palsy, no dysarthria Psychiatric: A+Ox3, euthymic affect Results & Data Vital Signs (Past 12 Hours) Vital Signs Temp Pulse Pulse Pulse Resp BP BP 10/30/18 11:32 36.9 C 65 16 139/74 10/30/18 08:00 80 10/30/18 07:43 37.0 C 75 16 167/89 H 10/30/18 05:49 76 156/87 H 10/30/18 03:26 88 10/30/18 03:25 36.9 C 83 20 157/77 H 10/30/18 02:14 36.6 C 95 H 20 158/89 H 10/30/18 01:59 92 H 20 154/96 H 10/30/18 01:00 90 17 157/92 H 10/30/18 00:30 90 23 149/86 H 10/30/18 00:22 89 20 177/88 H Pulse Ox 10/30/18 11:32 95 10/30/18 08:00 10/30/18 07:43 92 10/30/18 05:49 10/30/18 03:26 10/30/18 03:25 95 10/30/18 02:14 93 10/30/18 01:59 94 10/30/18 01:00 95 10/30/18 00:30 94 10/30/18 00:22 94
[2018-10-30] MEDS: PANTOprazole 40 MG TAB PO SCH (12:09)
--- NOTE | 2018-10-30 13:39 | Consultation Report ---
DATE OF CONSULTATION: 10/30/2018 INPATIENT CARDIOLOGY CONSULTATION CONSULTATION REQUESTED BY: Dr. Bailey. REASON FOR CONSULTATION: Chest pain. HISTORY OF PRESENT ILLNESS: Mrs. Bazan is a 73-year-old woman, who is postop day 5 from cervical surgery. She presented to [facility] on 10/30/2018 with complaints of chest discomfort and worsening numbness and tingling down her arms. In the Emergency Department, she received sublingual nitroglycerin and she states that the pain resolved over the next 20-30 minutes. She describes it as a pressure sensation in her midsternal area at approximately the level of the third rib. She denies any previous similar episodes and states that the numbness down her bilateral upper extremities is worsening as well. Otherwise, she denies any shortness of breath, palpitations, lightheadedness, dizziness or syncope. She states the chest discomfort occurred when she was just sitting not doing any activities. PAST SURGICAL HISTORY: 1. Postop day #5 cervical spine surgery. 2. Bilateral total knees. 3. Breast surgery. 4. Colonoscopies. 5. Tubal ligation. 6. Partial nephrectomy. 7. Tonsil and adenoidectomy. 8. Upper endoscopy. MEDICAL ILLNESSES: 1. Cervical spinal stenosis status post surgery. 2. Diabetes. 3. Dyslipidemia. 4. Migraine. 5. Diabetic neuropathy. 6. Fatty liver. 7. Hypertension. FAMILY HISTORY: Noncontributory. SOCIAL HISTORY: Denies any alcohol, tobacco or recreational drug use. REVIEW OF SYSTEMS: As per HPI, all other review of systems reviewed and negative at this time. ALLERGIES: ASPIRIN CAUSES GI BLEEDING. MEDICATIONS AN OUTPATIENT: 1. Diltiazem 240 mg daily. 2. Metoprolol tartrate 50 mg daily. 3. Januvia. 4. Atorvastatin 40 mg daily. 5. Gabapentin. 6. Glimepiride. 7. Metformin. 8. Pioglitazone. 9. Raloxifene. 10. Oxycodone p.r.n. PHYSICAL EXAMINATION: VITALS: Temperature 36.9, pulse 65, respiratory rate 12, blood pressure 139/74. GENERAL: Awake, alert, and oriented x3, out of bed seated in a chair with a C collar in place, no acute distress. HEENT: Normocephalic, atraumatic. Pupils equal, round, reactive to light and accommodation. Extraocular muscles intact. Anicteric sclerae. Moist mucous membranes. NECK: No JVD, no bruit. CARDIOVASCULAR: Regular. Positive S4. Normal S1 and S2. No S3. No murmurs or rubs. PULMONARY: Clear to auscultation bilaterally. No rales, rhonchi or wheezing. ABDOMEN: Bowel sounds x4, soft. No rebound, guarding, tenderness. No organomegaly. EXTREMITIES: No clubbing, cyanosis or edema. +2 pedal pulses bilaterally. SKIN: Warm and dry. TEST RESULTS: A 2D echocardiogram was read as no change compared to previous study of 10/11/2018. Normal LV chamber size and wall thickness, normal LV systolic function, EF 55-60%, no segmental left ventricle wall motion abnormalities are noted, grade 1 diastolic dysfunction, moderate aortic valve sclerosis without stenosis. IMPRESSION: 1. Chest pain. 2. Postoperative day #5 from cervical spinal surgery involving the levels of C4-C7. 3. Diabetes. 4. Hypertension. 5. Dyslipidemia. 6. Diastolic dysfunction with normal left ventricular systolic function. RECOMMENDATIONS: Mrs. Bazan was counseled that her pain follows the C4 dermatome pattern that was recently intervened upon and given her normal wall motion on echocardiogram, I do not see any cardiac component to it. Given the fact that the nitroglycerin did help, I am wondering if there might be some possible GI component to it, so she will be started on Pepcid 20 mg b.i.d. Otherwise, no further cardiac testing or intervention is necessary at this time. No cardiac medications will be changed. No cardiac followup is necessary as an outpatient. It is okay to discharge the patient to home from a cardiac standpoint.
[2018-10-30] MEDS: FAMOTIDINE 20 MG TAB PO SCH ×2 (15:16→20:14)
--- NOTE | 2018-10-30 17:27 | XRay Report ---
CERVICAL SPINE 3 VIEWS CLINICAL HISTORY: Neck pain. Recent cervical spinal fusion. FINDINGS: AP, lateral, and odontoid views of the cervical spine are obtained. No prior studies are fo r comparison at the time of dictation. The skeletal structures are osteopenic. There is no radiograph ic evidence of fracture or subluxation. Vertebral body height and alignment are maintained. The spino laminar line is intact. Extensive postoperative change is identified, with anterior fusion seen from C4-C7. There has been corpectomy of C6, with discectomy at C4-C5. The orthopedic hardware appears int act. The spinous processes are preserved. The atlantodental articulation appears maintained. The odon toid process and lateral masses are intact as visualized on the open-mouth view. Multilevel facet art hropathy is observed. There is marked prevertebral soft tissue edema with small foci of deep soft tis veronika gas. The apical lung parenchyma is clear as imaged. IMPRESSION: 1. No acute osseous abnormality is identified involving the cervical spine. 2. Postoperative change from anterior spinal fusion as above. The orthopedic hardware appears intact. 3. There is marked prevertebral soft tissue edema with foci of deep soft tissue gas. This is nonspeci fic and likely related to recent surgery. Clinical correlation will be required. Electronically signed by: Munir Keene M.D. 10/30/2018 5:26 PM
--- NOTE | 2018-10-30 18:31 | Emergency Department Note ---
Entered by Mya Saldivar acting as a scribe for Fernando Mcclain MD History of Present Illness General Chief complaint: Cardiac Assessment Stated complaint: NECK PAIN ,ARM TINGLING,SOB, CHEST PRESSURE Source: patient History of Present Illness Provider complaint: chest pain Onset (ago): hour(s) (3.5) 3 Location: chest Maximum Pain Intensity: 8 Current Pain Intensity: 6 Quality: + other (pressure) Exacerbated By: + other (sitting up) Associated symptoms: + other (Positive difficulty breathing; Positive arm tingling; Positive leg tingling; Negative profusely sweating;) The patient, who is a 73 year old female with a medical history of , presents to the Emergency Room with complaints of chest pain that started 3.5 hours prior to arrival. The patient reports that she feels a constant pressure that is located in the center of his chest. The patient rates her pain intensity at a 6. The patient expresses that sitting up exacerbates her symptoms. The patient states that she has trouble breathing. The patient reports that she has tingling in her arms and legs. The patient denies profusely sweating. The patient denies a history of blood clots in her legs and lungs. The patient denies smoking or a family history of heart disease. She did recently undergo surgery for her neck. Home Medications Home Medications Medication Instructions Recorded Confirmed Type Januvia 100 mg PO QPM 10/10/18 10/29/18 History acetaminophen 1,000 mg PO QID PRN 10/10/18 10/29/18 History atorvastatin 40 mg PO PM 10/10/18 10/29/18 History cyanocobalamin (vitamin B-12) 1,000 mcg PO QPM 10/10/18 10/29/18 History [Vitamin B-12] diltiazem HCl [DILT-XR] 240 mg PO QAM 10/10/18 10/29/18 History gabapentin 600 mg PO TID 10/10/18 10/29/18 History glimepiride 2 mg PO QAM 10/10/18 10/29/18 History metformin 1,000 mg PO BID 10/10/18 10/29/18 History metoprolol tartrate 50 mg PO QAM 10/10/18 10/29/18 History pioglitazone 15 mg PO QAM 10/10/18 10/29/18 History raloxifene 60 mg PO QPM 10/10/18 10/29/18 History sumatriptan succinate [Imitrex] 50 mg PO DAILY PRN 10/10/18 10/29/18 History oxycodone 5 mg PO Q4H PRN #20 tab 10/27/18 10/29/18 Rx calcium carbonate [Calcium 600] 600 mg PO DAILY 10/29/18 10/29/18 History cholecalciferol (vitamin D3) 1,000 unit PO DAILY 10/29/18 10/29/18 History [Vitamin D3] Allergies Allergy/AdvReac Type Severity Reaction Status Date / Time aspirin AdvReac Mild GI BLEEDING Verified 10/29/18 22:16 Past Med/Surg History Medical History B12 deficiency Diabetes mellitus, type 2 Diabetic neuropathy Fatty liver History of GI bleed History of colon polyps 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 Hx of migraine headaches 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 WEATHER RELATED Hx of renal cell cancer Hyperlipidemia Hypertension Senile osteoporosis Spinal stenosis in cervical region Surgical History History of esophagogastroduodenoscopy (EGD) History of kidney surgery RIGHT SIDE TO HAVE "CANCER REMOVED"- THAT WAS LAYING ON TOP OF KIDNEY (partial right nephrectomy) 09/10/2015 [facility] History of left knee replacement History of tonsillectomy and adenoidectomy History of total right knee replacement History of tubal ligation Hx of appendectomy Hx of colonoscopy Hx of removal of cyst X3 LEFT BREAST Nausea and vomiting after administration of anesthetic agent Family History Sister Family history of diabetes mellitus Sister Family history of diabetes mellitus Brother Family history of diabetes mellitus Aunt Family history of diabetes mellitus Social History Preferred Language: Luxembourgish Communication Ability: Effective Employee Relations Manager Required: No Beliefs That Will Affect Care: None Current Living Situation: Spouse Other Information That Helps Us Care for You: No Feels Safe at Home: Yes Safety Concerns: Feels Safe At This Time Smoking Status: Never smoker Do You Dip or Chew Tobacco: No ; Second Hand Exposure: No ; Tobacco Cessation Education Requested by Patient: No Hx Alcohol Use: No Hx Substance Use: No Review of Systems See HPI for pertinent positives & negatives. and A total of 10 systems reviewed and were otherwise negative Physical Exam Vital Signs Vital Signs - 24 hr 10/29/18 21:50 10/29/18 22:03 10/29/18 22:05 Temperature 37.1 C Temperature Source Oral Sepsis Recent Fever Within 48 Hours No Sepsis Action Taken by Nursing No Action Required Pulse Rate 89 88 Pulse Rate [Left Apical] Pulse Rate from SpO2 Sensor 85 Pulse Rhythm [Left Apical] Pulse Strength [Left Apical] Respiratory Rate 18 30 H Respiratory Effort / Characteristics Labored Respiratory Depth Normal Shallow Respiratory Pattern Blood Pressure 155/88 H Blood Pressure [Left Arm] Blood Pressure Mean 110 Blood Pressure Mean [Left Arm] Blood Pressure Position [Left Arm] Pulse Oximetry 95 94 Oxygen Delivery Method Room Air Room Air 10/29/18 22:06 10/29/18 22:08 10/29/18 22:12 Temperature Temperature Source Sepsis Recent Fever Within 48 Hours Sepsis Action Taken by Nursing Pulse Rate 85 96 H Pulse Rate [Left Apical] 99 H Pulse Rate from SpO2 Sensor 86 95 H Pulse Rhythm [Left Apical] Regular Pulse Strength [Left Apical] Normal Respiratory Rate 28 H 24 27 H Respiratory Effort / Characteristics Non-Labored Spontaneous Respiratory Depth Normal Respiratory Pattern Regular Blood Pressure 166/79 H 139/79 Blood Pressure [Left Arm] 166/79 H Blood Pressure Mean 108 99 Blood Pressure Mean [Left Arm] 108 Blood Pressure Position [Left Arm] Lying Pulse Oximetry 92 93 93 Oxygen Delivery Method Room Air 10/29/18 22:13 10/29/18 22:15 10/29/18 22:17 Temperature Temperature Source Sepsis Recent Fever Within 48 Hours Sepsis Action Taken by Nursing Pulse Rate 97 H 93 H Pulse Rate [Left Apical] 94 H Pulse Rate from SpO2 Sensor 97 H 94 H Pulse Rhythm [Left Apical] Regular Pulse Strength [Left Apical] Normal Respiratory Rate 24 36 H 25 H Respiratory Effort / Characteristics Non-Labored Respiratory Depth Normal Respiratory Pattern Regular Blood Pressure 151/82 H 152/81 H Blood Pressure [Left Arm] 139/79 Blood Pressure Mean 105 104 Blood Pressure Mean [Left Arm] 99 Blood Pressure Position [Left Arm] Pulse Oximetry 95 92 93 Oxygen Delivery Method Room Air 10/29/18 22:30 10/29/18 22:46 10/29/18 23:00 Temperature Temperature Source Sepsis Recent Fever Within 48 Hours Sepsis Action Taken by Nursing Pulse Rate 89 94 H 90 Pulse Rate [Left Apical] Pulse Rate from SpO2 Sensor 89 90 Pulse Rhythm [Left Apical] Pulse Strength [Left Apical] Respiratory Rate 23 21 23 Respiratory Effort / Characteristics Respiratory Depth Respiratory Pattern Blood Pressure 158/74 H 168/87 H Blood Pressure [Left Arm] Blood Pressure Mean 102 114 Blood Pressure Mean [Left Arm] Blood Pressure Position [Left Arm] Pulse Oximetry 94 93 Oxygen Delivery Method 10/29/18 23:30 10/29/18 23:45 10/30/18 00:00 Temperature Temperature Source Sepsis Recent Fever Within 48 Hours Sepsis Action Taken by Nursing Pulse Rate 88 84 82 Pulse Rate [Left Apical] Pulse Rate from SpO2 Sensor 88 84 83 Pulse Rhythm [Left Apical] Pulse Strength [Left Apical] Respiratory Rate 34 H 18 18 Respiratory Effort / Characteristics Respiratory Depth Respiratory Pattern Blood Pressure 180/79 H 166/79 H 170/84 H Blood Pressure [Left Arm] Blood Pressure Mean 112 108 112 Blood Pressure Mean [Left Arm] Blood Pressure Position [Left Arm] Pulse Oximetry 93 96 97 Oxygen Delivery Method Room Air 10/30/18 00:22 10/30/18 00:30 10/30/18 01:00 Temperature Temperature Source Sepsis Recent Fever Within 48 Hours Sepsis Action Taken by Nursing Pulse Rate 90 90 Pulse Rate [Left Apical] 89 Pulse Rate from SpO2 Sensor 89 91 H Pulse Rhythm [Left Apical] Pulse Strength [Left Apical] Respiratory Rate 20 23 17 Respiratory Effort / Characteristics Respiratory Depth Respiratory Pattern Blood Pressure 149/86 H 157/92 H Blood Pressure [Left Arm] 177/88 H Blood Pressure Mean 107 113 Blood Pressure Mean [Left Arm] 117 Blood Pressure Position [Left Arm] Pulse Oximetry 94 94 95 Oxygen Delivery Method Room Air Room Air Constitutional: Vital signs reviewed. Eyes: Pupils are equal round reactive to light. Conjunctiva are noninjected. ENT: Pharynx is clear without erythema or exudate. Mucous membranes are moist. Neck is in a rigid cervical collar. Respiratory: Clear to auscultation bilaterally. Breath sounds are equal bilaterally. Cardiovascular: Regular rate and rhythm. No rubs or gallops. GI: Soft, nondistended and nontender. Bowel sounds are present. Musculoskeletal: No peripheral edema. No lower extremity tenderness. Integumentary: No cyanosis. Neurological: The patient is awake and alert. No focal deficits. Psychiatric: Anxious appearing. Course 2203: Past medical records reviewed. The patient was evaluated in room A10. A complete history and physical exam was performed. 2305: I reassessed the patient who states that her pain is down to a three after nitro treatment. She is agreeable to a CAT scan to rule out PE. 0028: I reassessed the patient who states that she has minimal pressure at this time. 0029: I reviewed the patient's case with Dr. Bailey, [facility] Hospitalist. He will evaluate the patient for further management. 0059: The patient is being evaluated by Dr. Bailey. Consultations Consultation #1: I reviewed the patient's case with Dr. Bailey, [facility] Hospitalist. He will evaluate the patient for further management. Time: 00:29 Administered Medications Acetaminophen (Tylenol) 650 mg PO Q4H PRN PRN Reason: Pain or Fever Stop: 11/29/18 02:19 Last Admin: 10/30/18 13:36 Dose: 650 mg Documented by: [id number] Diltiazem HCl (Tiazac) 240 mg PO QAM PRABHJOT Stop: 11/29/18 08:59 Last Admin: 10/30/18 07:50 Dose: 240 mg Documented by: [id number] Famotidine (Pepcid) 20 mg PO BID PRABHJOT Stop: 11/29/18 12:44 Last Admin: 10/30/18 15:16 Dose: 20 mg Documented by: [id number] Gabapentin (Neurontin) 600 mg PO TID PRABHJOT Stop: 11/29/18 08:59 Last Admin: 10/30/18 15:16 Dose: 600 mg Documented by: [id number] Admin: 10/30/18 07:50 Dose: 600 mg Documented by: [id number] Sodium Chloride (Nss 1000ml) 1,000 mls @ 60 mls/hr IV .[id number] PRABHJOT Stop: 11/29/18 06:44 Last Infusion: 10/30/18 11:18 Dose: 0 mls/hr Documented by: [id number] Infusion: 10/30/18 09:56 Dose: 0 mls/hr Documented by: [id number] Admin: 10/30/18 07:49 Dose: 60 mls/hr Documented by: [id number] Insulin Aspart (Novolog Flexpen) 0 units SC ACHS PRABHJOT Stop: 11/29/18 07:29 Last Admin: 10/30/18 17:45 Dose: 6 units Documented by: [id number] Cosigned by: [id number] Admin: 10/30/18 12:11 Dose: 6 units Documented by: [id number] Cosigned by: [id number] Admin: 10/30/18 09:56 Dose: Not Given Documented by: [id number] Cosigned by: [id number] Insulin Glargine (Lantus Solostar Pen) 5 units SC BID PRABHJOT Stop: 11/29/18 08:59 Last Admin: 10/30/18 12:09 Dose: 5 units Documented by: [id number] Cosigned by: [id number] Admin: 10/30/18 09:57 Dose: Not Given Documented by: [id number] Cosigned by: [id number] Metoprolol Tartrate (Lopressor) 50 mg PO QAM PRABHJOT Stop: 11/29/18 08:59 Last Admin: 10/30/18 07:50 Dose: 50 mg Documented by: [id number] Morphine Sulfate (Morphine Sulfate) 3 mg IV Q4H PRN PRN Reason: Pain Stop: 11/13/18 05:33 Last Admin: 10/30/18 05:52 Dose: 3 mg Documented by: [id number] Multivitamins/Minerals (Caltrate Plus) 1 tab PO DAILY PRABHJOT Stop: 11/29/18 08:59 Last Admin: 10/30/18 07:51 Dose: 1 tab Documented by: [id number] Nitroglycerin (Nitro-Bid 2%) 0.5 inch EXT Q6H PRABHJOT Stop: 11/29/18 13:58 Last Admin: 10/30/18 17:39 Dose: Not Given Documented by: [id number] Admin: 10/30/18 12:12 Dose: Not Given Documented by: [id number] Admin: 10/30/18 05:50 Dose: 0.5 inch Documented by: [id number] Pantoprazole Sodium (Protonix) 40 mg PO QAM PRABHJOT Stop: 11/03/18 10:14 Last Admin: 10/30/18 12:09 Dose: 40 mg Documented by: [id number] Vitamin D (Vitamin D3) 1,000 units PO DAILY PRABHJOT Stop: 11/29/18 08:59 Last Admin: 10/30/18 07:50 Dose: 1,000 units Documented by: [id number] Discontinued Medications Bisacodyl (Dulcolax) 10 mg OK NOW ONE Stop: 10/30/18 07:01 Last Admin: 10/30/18 09:56 Dose: Not Given Documented by: [id number] Fentanyl Citrate (Fentanyl Citrate) 50 mcg IV NOW STA Stop: 10/29/18 23:06 Last Admin: 10/29/18 23:11 Dose: 50 mcg Documented by: [id number] Magnesium Sulfate/Dextrose (Magnesium Sulfate / D5w) 1 gm in 100 mls @ 100 mls/hr IV 30 ONE Stop: 10/30/18 10:29 Last Infusion: 10/30/18 10:56 Dose: 0 mls/hr Documented by: [id number] Admin: 10/30/18 09:56 Dose: 100 mls/hr Documented by: [id number] Ioversol (Optiray 320 125ml) 116 ml IV ONCE PRN PRN Reason: Interaction Checking Stop: 11/02/18 23:22 Last Admin: 10/29/18 23:25 Dose: 116 ml Documented by: [id number] Lactulose (Chronulac) 30 gm PO NOW ONE Stop: 10/30/18 07:01 Last Admin: 10/30/18 07:50 Dose: 30 gm Documented by: [id number] Nitroglycerin (Nitrostat) 0.4 mg SL UD PRN PRN Reason: Chest Pain Stop: 11/28/18 22:02 Last Admin: 10/29/18 22:47 Dose: 0.4 mg Documented by: [id number] Admin: 10/29/18 22:13 Dose: 0.4 mg Documented by: [id number] Nitroglycerin (Nitro-Bid 2%) 1 inch EXT NOW ONE Stop: 10/30/18 00:29 Last Admin: 10/30/18 01:03 Dose: 1 inch Documented by: [id number] Ondansetron HCl (Zofran) 4 mg IV NOW STA Stop: 10/29/18 23:06 Last Admin: 10/29/18 23:11 Dose: 4 mg Documented by: [id number] Medical Decision Making Differential Diagnosis Differential diagnosis includes: unstable angina, myocardial infarction, pulmonary embolism, pleurisy, GERD as well as others were entertained. Medical Records Attestation: I reviewed the patient's medical records. The patient's record presents a cervical discectomy and effusion by Dr. Treviño o n October 26. Home Medications Current Medication List: was personally reviewed by me Laboratory Data Attestation: I reviewed the patient's lab results. Result diagrams: 10/30/18 08:13 10/30/18 08:13 Lab Results 10/29/18 10/29/18 10/29/18 Range/Units 22:00 22:00 22:09 WBC 11.28 H (4.8-10.8) K/uL RBC 4.03 L (4.2-5.4) M/uL Hgb 11.8 L (12.0-16.0) g/dL POC Hgb (12.0-16.0) g/dl Hct 34.9 L (37-47) % POC Hct (37-47) % MCV 86.6 (80-100) fL MCH 29.3 (25-34) pg MCHC 33.8 (32-36) g/dL RDW Std Deviation 44.5 (36.4-46.3) fL RDW Coeff of Marcela 14.1 (11.5-14.5) % Plt Count 279 (130-400) K/uL MPV 10.5 H (7.4-10.4) fL Immature Gran % (Auto) 0.4 % Neut % (Auto) 69.4 % Lymph % (Auto) 20.0 % [place] % (Auto) 9.3 % Eos % (Auto) 0.8 % Baso % (Auto) 0.1 % Immature Gran # (Auto) 0.04 H (0.00-0.02) K/uL Neut # (Auto) 7.83 H (1.4-6.5) K/uL Lymph # (Auto) 2.26 (1.2-3.4) K/uL [place] # (Auto) 1.05 H (0.11-0.59) K/uL Eos # (Auto) 0.09 (0-0.5) K/uL Baso # (Auto) 0.01 (0-0.2) K/uL POC Sodium (135-144) mEq/L Sodium 134 L (136-145) mmol/L POC Potassium (3.3-5.0) mEq/L Potassium 3.7 (3.5-5.1) mmol/L POC Chloride (101-112) mEq/L Chloride 99 (98-107) mmol/L Carbon Dioxide 25 (21-32) mmol/L POC Total CO2 (24-31) mEq/l Anion Gap 10.0 (3-11) POC Anion Gap (16-25) mmol/L POC BUN (7-18) mg/dl BUN 10 (7-18) mg/dl Creatinine 0.81 (0.6-1.2) mg/dl POC Creatinine (0.6-1.3) mg/dl Est Cr Clr Drug Dosing Not Reportable Est GFR ( Amer) 82.9 Est GFR (Non-Af Amer) 71.5 BUN/Creatinine Ratio 12.0 (10-20) Glucose 201 H (70-99) mg/dl POC Glucose (other) (70-99) mg/dl Calcium 9.5 (8.5-10.1) mg/dl POC Ioniz Calcium Krysten (1.12-1.32) mmol/l Total Bilirubin 0.8 (0.2-1) mg/dl AST 13 L (15-37) U/L ALT 16 (12-78) U/L Alkaline Phosphatase 63 (45-117) U/L POC Troponin I < 0.03 (0-0.045) ng/ml Total Protein 7.8 (6.4-8.2) gm/dl Albumin 3.1 L (3.4-5.0) gm/dl Globulin 4.7 H (2.5-4.0) gm/dl Albumin/Globulin Ratio 0.7 L (0.9-2) Lipase 135 (73-393) U/L 10/29/18 Range/Units 22:12 WBC (4.8-10.8) K/uL RBC (4.2-5.4) M/uL Hgb (12.0-16.0) g/dL POC Hgb 12.6 (12.0-16.0) g/dl Hct (37-47) % POC Hct 37 (37-47) % MCV (80-100) fL MCH (25-34) pg MCHC (32-36) g/dL RDW Std Deviation (36.4-46.3) fL RDW Coeff of Marcela (11.5-14.5) % Plt Count (130-400) K/uL MPV (7.4-10.4) fL Immature Gran % (Auto) % Neut % (Auto) % Lymph % (Auto) % [place] % (Auto) % Eos % (Auto) % Baso % (Auto) % Immature Gran # (Auto) (0.00-0.02) K/uL Neut # (Auto) (1.4-6.5) K/uL Lymph # (Auto) (1.2-3.4) K/uL [place] # (Auto) (0.11-0.59) K/uL Eos # (Auto) (0-0.5) K/uL Baso # (Auto) (0-0.2) K/uL POC Sodium 134 L (135-144) mEq/L Sodium (136-145) mmol/L POC Potassium 3.7 (3.3-5.0) mEq/L Potassium (3.5-5.1) mmol/L POC Chloride 98 L (101-112) mEq/L Chloride (98-107) mmol/L Carbon Dioxide (21-32) mmol/L POC Total CO2 24 (24-31) mEq/l Anion Gap (3-11) POC Anion Gap 17.0 (16-25) mmol/L POC BUN 8 (7-18) mg/dl BUN (7-18) mg/dl Creatinine (0.6-1.2) mg/dl POC Creatinine 0.7 (0.6-1.3) mg/dl Est Cr Clr Drug Dosing Est GFR ( Amer) Est GFR (Non-Af Amer) BUN/Creatinine Ratio (10-20) Glucose (70-99) mg/dl POC Glucose (other) 208 H (70-99) mg/dl Calcium (8.5-10.1) mg/dl POC Ioniz Calcium Krysten 1.14 (1.12-1.32) mmol/l Total Bilirubin (0.2-1) mg/dl AST (15-37) U/L ALT (12-78) U/L Alkaline Phosphatase (45-117) U/L POC Troponin I (0-0.045) ng/ml Total Protein (6.4-8.2) gm/dl Albumin (3.4-5.0) gm/dl Globulin (2.5-4.0) gm/dl Albumin/Globulin Ratio (0.9-2) Lipase (73-393) U/L Imaging Data Radiologist's Impression: Radiology results as stated below per my review and the radiologist's interpretation: CT CHEST With Contrast: Trace right greater than left pleural effusions. Associated atelectasis. Component of pneumonia at the left lung base is not excluded. No definite pulmonary embolus identified. No aortic aneurysm or dissection. Heterogeneous thyroid could be further evaluated with nonemergent dedicated ultrasound if clinically indicated. Punctate calcified granuloma at the left lung base. Fusion hardware partially visualized in the cervical spine. Radiologist: Isaac Cevallos M.D. Study ready at 23:31 and initial results transmitted at 00:22 XR chest 1V portable CLINICAL HISTORY: Atypical chest pain COMPARISON STUDY: No previous studies for comparison. FINDINGS: The heart is mildly enlarged. There is mild vascular prominence without evidence for overt failure. There are mild basilar atelectatic changes. There are no large pleural effusions. Postsurgical changes are present within t he cervical spine.[ IMPRESSION: 1. Cardiomegaly with mild vascular/interstitial prominence. No overt failure 2. Mild basilar atelectasis. Electronically signed by: Sung Messer M.D. 10/29/2018 10:14 PM ECG Data Attestation: I personally reviewed and interpreted this ECG as follows: Indication: chest pain Rate (beats per minute): 87 Rhythm: normal sinus Findings: + ST depression (V3 to V6); no ST elevation Comparison ECG Date: from (09/06/1998) Change: the following changes noted (abnormalities) Additional Comments: Repeat EKG shows: Normal sinus rhythm at 89 bpm. Significant improvement of ST depression from previous. No ST elevation or PVC. Blood Pressure Blood Pressure Findings: Elevated blood pressure Blood Pressure Disposition: Referred to patients primary care provider [facility] Narrative I did evaluate the patient as noted above. The patient is presenting with chest pressure and shortness of breath. IV access was established. The patient was placed on a continuous design specialist. I did order and personally review the patient's 12-lead EKG as described above. Her twelve-lead EKG demonstrates some ST depressions in the precordial leads as described above. These are new from her previous EKG, although that one was from 1998. I did treat the patient with sublingual nitroglycerin. Her pain went from a 6 to a 2:03 sublingual nitroglycerin. I did treat her with fentanyl and Zofran IV. I did order and personally reviewed the images of the patient's chest x-ray as described above. There is no evidence of acute infiltrate. I did order and review the patient's blood work as noted in the electronic medical record. Troponin is negative. Labs are otherwise unremarkable. I did reassess the patient. She still has some mild chest pain. After further discussion, I did order a CT angiogram of the chest. I did review the images myself as well as the radiology report as described above. There is no evidence of pulmonary embolism. I did reassess the patient. She has some slight chest pain and was given nitroglycerin paste. I did repeat a twelve-lead EKG which showed improvement of the ST depressions from earlier. I did discuss the test results with her. I did recommend hospitalization for further care and evaluation. I did discuss the case with the hospitalist and case loader operator. Impression & Plan Chest pain, precordial, Abnormal EKG Discharge Plan Visit Data *Final* Discharge Date/Time: 10/30/18 01:59 Chief Complaint: Cardiac Assessment Stated Complaint: NECK PAIN ,ARM TINGLING,SOB, CHEST PRESSURE ED Provider: Fernando Mcclain Discharge Problem: Chest pain, precordial, Abnormal EKG Patient Disposition: Admitted As Inpatient Discharge Instructions Interventions: ED Discharge Assessment Last Done: 10/30/18 01:59 The jennifer's documentation has been prepared under my direction and personally reviewed by me in its entirety. I confirm that the note above accurately reflects all work, treatment, procedures, and medical decision making performed by me.
[2018-10-30] MEDS ORDERED: RALOXIFENE HCL 60 MG TAB PO SCH (21:00)
[2018-10-30] MEDS ORDERED: ATORVASTATIN 40 MG TAB PO SCH (21:00)
[2018-10-30] MEDS ORDERED: CYANOCOBALAMIN 500 MCG TABLET (VITAMIN B-12) PO SCH (21:00)
[2018-10-31] MEDS: NITROGLYCERIN 2% OINTMENT 30GM TUBE EXT SCH (05:19)
[2018-10-31 06:16] LABS: Estimated Average Glucose 174 mg/dl; Hemoglobin A1C 7.7 % (4.5-5.6)
[2018-10-31] MEDS: GABAPENTIN 600 MG TAB PO SCH (07:30)
[2018-10-31] MEDS: PANTOprazole 40 MG TAB PO SCH (07:31)
[2018-10-31] MEDS: INSULIN GLARGINE SOLOSTAR 100 UNITS/ML 3 ML PEN SC SCH (07:31)
[2018-10-31] MEDS: CALCIUM 600MG + VIT D 400 IU TAB PO SCH (07:31)
[2018-10-31] MEDS: FAMOTIDINE 20 MG TAB PO SCH (07:31)
[2018-10-31] MEDS: dilTIAZem ER 120 MG CAPCR PO SCH (07:31)
[2018-10-31] MEDS: CHOLECALCIFEROL 1,000 UNITS TAB PO SCH (07:31)
[2018-10-31] MEDS: METOPROLOL TARTRATE 50 MG TAB PO SCH (07:31)
[2018-10-31] MEDS: INSULIN ASPART 100 UNITS/ML 3 ML PEN SC SCH (08:44)
--- NOTE | 2018-10-31 09:19 | Hospitalist Progress Note ---
Date of Service October 31, 2018 Assessment & Plan (1) Cervical stenosis of spinal canal: This is a 73 year old female with cervical spine surgery on 10/26/18 because of Cervical spinal stenosis with myeloradiculopathy (#1 Anterior cervical discectomy with bilateral foraminotomies C4-5. #2 a nterior cervical corpectomy C6. #3 anterior cervical arthrodesis C4-C5 and C5- C7. #4 placement of Spira titanium cage 7 mm in height at C4-5 and 21 mm in height at C5-C7. #5 placement of locally harvested morselized autograft combined with DBM in the interbody cage. #6 application of colvin plate and screws from C4-C7) -Patient at home had symptoms of chest pressure like feeling in the middle of the chest associated with some tingling in the left hand and some numbness in the left leg -cardiology work up is normal -Patient was evaluated by orthopedics on 10/30/18 and suggest these paresthesia symptoms and numbness symptoms are not unusual given patient's pre-op diagnosis and subsequent operation. Orthopedics service suggested trying trial of steroids. Have discussed with patient and she does not want to do steroid trial at this time Cervical neck X ray by orthopedics generally unremarkable 1. No acute osseous abnormality is identified involving the cervical spine. 2. Postoperative change from anterior spinal fusion as above. The orthopedic hardware appears intact. 3. There is marked prevertebral soft tissue edema with foci of deep soft tissue gas. This is nonspecific and likely related to recent surgery. -continue neck collar -serum magnesium 1.8 on 10/30/18 and IV magnesium was given adequate B12, folic acid and TSH levels Patient ambulating and paresthesia symptoms and numbness symptoms generally self resolving without acute interventions Patient should follow up with 11/07/2018 1:00 PM Provider Nazia Giraldo MD Department Internal Medicine [facility] and obtain repeat complete blood counts as she is recently post-op. Patient should discuss with primary care doctor on diabetes mellitus control. Hemoglobin A1c is 7.7. Patient may resume home medications. Patient may need tighter blood pressure control and should discuss with primary care doctor. Patient was recommended by cardiology service for trial of Pepcid twice a day in case initial chest symptoms were from gastric reflux. Patient may hold off further B12 supplements for now because B12 level is 970 pg/ml which is somewhat higher than reference ranges of normal. Patient should discuss with primary care doctor about further vitamin B12 supplement use. History of vitamin B12 deficiency -Patient may hold off further B12 supplements for now because B12 level is 970 pg/ml which is somewhat higher than reference ranges of normal. Patient should discuss with primary care doctor about further vitamin B12 supplement use. Chest pain -On CTA: There is no evidence of pulmonary embolus in the main, lobar, or segmental pulmonary arteries. -troponins serially negative -echocardiogram: no change compared to previous 10/11/18 echo. ejection fraction is 55 to 60% with no wall motion abnormality noted -Patient was recommended by cardiology service for trial of Pepcid twice a day in case initial chest symptoms were from gastric reflux -continue neuropathic pain medication of gabapentin Type 2 diabetes mellitus without termination clerk use of insulin -patient may resume home dose glimepiride, Januvia, Metformin and Actos on discharge -Patient should discuss with primary care doctor on diabetes mellitus control. Hemoglobin A1c is 7.7. Hypertension -Continue diltiazem and Lopressor -patient may need tighter blood pressure control and should discuss with primary care doctor History of migraine -no acute headaches at this time History of renal cancer, status post right partial nephrectomy in the past Deep venous thrombosis prophylaxis, SCDs. Full Code Discharge Diagnosis: Cervical stenosis of spinal canal; paresthesia symptoms and numbness; chest pain; hypertension; Type 2 diabetes mellitus without half-way use of insulin Subjective Patient denies chest pain overnight or today. denies paresthesia symptoms or numbness symptoms overnight or today. no dizziness. no headache. no shortness of breath. no vomiting. no abdomen pain. no palpitations. no acute telemetry events she has been ambulating well as per patient's nurse. patient would like to go home today discharge instructions and followups discussed at length Physical Exam Constitutional: comfortable Eyes: PERRL, conjunctivae normal, anicteric sclerae EOM intact bilaterally ENMT: external ear and nose normal, oropharynx normal Neck: normal visual inspection (neck collar in place) Respiratory: normal respiratory effort, lungs clear to auscultation Cardiovascular: Rate/Rhythm: regular rate and regular rhythm Gastrointestinal (Abdomen): normal bowel sounds, soft, nontender, no hepatosplenomegaly Musculoskeletal: Head/Neck/Chest: normocephalic and head atraumatic Neurologic: PERRL, EOMI, accommodation nl, no face palsy, no dysarthria Psychiatric: A+Ox3, euthymic affect Results & Data Vital Signs (Past 12 Hours) Vital Signs Temp Pulse Pulse Resp BP BP Pulse Ox 10/31/18 09:08 133/79 10/31/18 07:00 36.6 C 63 16 173/91 H 95 10/31/18 02:36 36.8 C 88 16 159/84 H 93 10/30/18 23:35 67 10/30/18 23:09 36.7 C 73 16 158/87 H 95
--- NOTE | 2018-10-31 09:29 | Discharge Summary ---
Date of Service October 31, 2018 Admission HPI Per Admitting Provider HISTORY OF PRESENT ILLNESS: This is a 73-year-old female with past medical history significant for type 2 diabetes, hypertension, fatty liver, B12 deficiency, senile osteoporosis, osteoarthritis, history of cerebral meningioma, migraines, history of renal cell carcinoma, history of lobular carcinoma in situ of breast, history of cervical spinal stenosis, status post cervical spine surgery last Wednesday, was discharged home on Wednesday. She is still in a neck collar. The patient says since going home, she was doing okay, but then she developed during today'snight some chest pressure like feeling in the middle of the chest associated with some tingliness in the left hand and some numbness in the left leg. Before surgery, she has some tingliness and numbness in the left side that has not much improved, but today it got worse, therefore got worried and came to the hospital. Initial EKG showed some mild ST depression in leads V4, V5, but repeat EKG shows resolved st depressions with some nonspecific ST-T changes. Point of care troponin is negative. Given nitro in the ER, she still has some chest discomfort, starting on nitro paste. She does have headache now. No dizziness, no blurred visions, no earache, has some sore throat from the ETT tube during surgery. Some difficulty swallowing from her sore throat. She is on soft diet. Appetite is not that great. She was short of breath when this episode happened. She still feels some short of breath. Once in a while, she gets cough. Denies any fevers or chills, no nausea, no abdominal pain. Constipated with no bowel movements since last Wednesday, micturating fine. No pain while micturating. No hematuria. She has a chronic lower extremity edema. No rash. Currently resting comfortably and hemodynamically stable. ALLERGIES: ASPIRIN. PAST MEDICAL HISTORY: As mentioned above. PAST SURGICAL HISTORY: Left total knee arthroplasty, right total knee arthroplasty, left breast lesion excision, cauterization of ectropion, colonoscopy, EGDs, excision of breast lesion, knee arthroscopies, ligation of oviducts, partial removal of the kidney in 2016, tonsillectomy, adenoidectomy. MEDICATIONS: The patient is on oxycodone IR 5 mg p.o. q. 4 hours p.r.n., sumatriptan 50 mg p.o. p.r.n. migraines, metoprolol tartrate 50 mg p.o. daily, gabapentin 600 mg p.o. t.i.d., Januvia 100 mg p.o. daily, metformin 1000 mg p.o. b.i.d., glimepiride 2 mg p.o. daily, diltiazem XR 240 mg p.o. daily, Actos 50 mg p.o. daily, Evista 60 mg p.o. daily, Lipitor 40 mg p.o. daily, cyanocobalamin 1000 mcg daily, Tylenol 500 mg p.o. q. 6 hours p.r.n., calcium 600 mg p.o. daily, vitamin D 1000 units p.o. daily. FAMILY HISTORY: Significant for: Mother had arthritis. Father had HI. Brother had CAD. SOCIAL HISTORY: . No smoking, no alcohol, no drug use. REVIEW OF SYMPTOMS: As per HPI. Rest of review of systems is negative. Admission Exam Per Admitting Provider PHYSICAL EXAMINATION: GENERAL: The patient is of moderate build, not in acute distress. VITAL SIGNS: Temperature 37.1, pulse 90, respiratory rate 17, blood pressure 157/92, oxygen 95% room air. HEENT: No pallor, no icterus. Pupils equal, round, reactive to light. Extraocular muscles intact. NECK: Neck collar. CARDIOVASCULAR: S1, S2 heard, regular rate and rhythm, no murmur, no gallop. RESPIRATORY SYSTEM: Normal AP diameter. No accessory muscle use. No wheezing, no crackles. ABDOMEN: Soft, bowel sounds present, nontender. No distention. CENTRAL NERVOUS SYSTEM: Cranial nerves II-XII grossly intact. Power 5/5 in upper extremities. Moves lower extremities. EXTREMITIES: Chronic lower extremity edema present, no erythema seen. Principal Diagnosis Cervical stenosis of spinal canal; paresthesia symptoms and numbness; chest pain; hypertension; Type 2 diabetes mellitus without mcc use of insulin Discharge Exam Constitutional comfortable Eyes PERRL, conjunctivae normal, anicteric sclerae EOM intact bilaterally ENMT external ear and nose normal, oropharynx normal Neck normal visual inspection (neck collar in place) Respiratory normal respiratory effort, lungs clear to auscultation Cardiovascular Rate/Rhythm: regular rate and regular rhythm Gastrointestinal (Abdomen) normal bowel sounds, soft, nontender, no hepatosplenomegaly Musculoskeletal Head/Neck/Chest: normocephalic and head atraumatic Neurologic PERRL, EOMI, accommodation nl, no face palsy, no dysarthria Psychiatric A+Ox3, euthymic affect Discharge Data Allergies Allergy/AdvReac Type Severity Reaction Status Date / Time aspirin AdvReac Mild GI BLEEDING Verified 10/29/18 22:16 Consultations 10/30/18 00:28 ED Decision to Admit Stat 10/30/18 02:20 Consult Case Management - Discharge Planning Routine 10/30/18 08:00 Consult Cardiology Routine Consult Orthopedic Surgery Routine Ordered Studies 10/29/18 23:05 CT angio chest PE protocol Stat 10/30/18 09:30 FL cervical 2-3V Routine Hospital Course (1) Cervical stenosis of spinal canal: This is a 73 year old female with cervical spine surgery on 10/26/18 because of Cervical spinal stenosis with myeloradiculopathy (#1 Anterior cervical discectomy with bilateral foraminotomies C4-5. #2 anterior cervical corpectomy C6. #3 anterior cervical arthrodesis C4-C5 and C5- C7. #4 placement of Spira titanium cage 7 mm in height at C4-5 and 21 mm in height at C5-C7. #5 placement of locally harvested morselized autograft combined with DBM in the interbody cage. #6 application of colvin plate and screws from C4-C7) -Patient at home had symptoms of chest pressure like feeling in the middle of the chest associated with some tingling in the left hand and some numbness in the left leg -cardiology work up is normal -Patient was evaluated by orthopedics on 10/30/18 and suggest these paresthesia symptoms and numbness symptoms are not unusual given patient's pre-op diagnosis and subsequent operation. Orthopedics service suggested trying trial of steroids. Have discussed with patient and she does not want to do steroid trial at this time Cervical neck X ray by orthopedics generally unremarkable 1. No acute osseous abnormality is identified involving the cervical spine. 2. Postoperative change from anterior spinal fusion as above. The orthopedic hardware appears intact. 3. There is marked prevertebral soft tissue edema with foci of deep soft tissue gas. This is nonspecific and likely related to recent surgery. -continue neck collar -serum magnesium 1.8 on 10/30/18 and IV magnesium was given adequate B12, folic acid and TSH levels Patient ambulating and paresthesia symptoms and numbness symptoms generally self resolving without acute interventions Patient should follow up with 11/07/2018 1:00 PM Provider Nazia Giraldo MD Department Internal Medicine [facility] and obtain repeat complete blood counts as she is recently post-op. Patient should discuss with primary care doctor on diabetes mellitus control. Hemoglobin A1c is 7.7. Patient may resume home medications. Patient may need tighter blood pressure control and should discuss with primary care doctor. Patient was recommended by cardiology service for trial of Pepcid twice a day in case initial chest symptoms were from gastric reflux. Patient may hold off further B12 supplements for now because B12 level is 970 pg/ml which is somewhat higher than reference ranges of normal. Patient should discuss with primary care doctor about further vitamin B12 supplement use. History of vitamin B12 deficiency -Patient may hold off further B12 supplements for now because B12 level is 970 pg/ml which is somewhat higher than reference ranges of normal. Patient should discuss with primary care doctor about further vitamin B12 supplement use. Chest pain -On CTA: There is no evidence of pulmonary embolus in the main, lobar, or segmental pulmonary arteries. -troponins serially negative -echocardiogram: no change compared to previous 10/11/18 echo. ejection fraction is 55 to 60% with no wall motion abnormality noted -Patient was recommended by cardiology service for trial of Pepcid twice a day in case initial chest symptoms were from gastric reflux -continue neuropathic pain medication of gabapentin Type 2 diabetes mellitus without intermediate accountant use of insulin -patient may resume home dose glimepiride, Januvia, Metformin and Actos on discharge -Patient should discuss with primary care doctor on diabetes mellitus control. Hemoglobin A1c is 7.7. Hypertension -Continue diltiazem and Lopressor -patient may need tighter blood pressure control and should discuss with primary care doctor History of migraine -no acute headaches at this time History of renal cancer, status post right partial nephrectomy in the past Deep venous thrombosis prophylaxis, SCDs. Full Code Discharge Diagnosis: Cervical stenosis of spinal canal; paresthesia symptoms and numbness; chest pain; hypertension; Type 2 diabetes mellitus without mcc use of insulin Total Time Total Time Spent Total Time Spent (In Minutes): 40 minutes Total Time Includes: Examination of the Patient, Discharge Planning, Medication Reconciliation and Communication With Other Providers Discharge Plan Discharge Items Patient Disposition: Home - Self-Care Reason For Visit: CHEST PAIN Discharge Diagnosis: Cervical stenosis of spinal canal; paresthesia symptoms and numbness; chest pain; hypertension; Type 2 diabetes mellitus without mcc use of insulin Condition: Good Discharge Goals: Improve function Activity: Resume your previous activity Non-emergency contact: Primary Care Provider Call non-emergency contact if: you have any medication questions Follow-up/Referrals: Magaly Velasco, [Primary Care Provider] - Diet: Carb Consistent or DM2 Addtl Provider Instructions: This is a 73 year old female with cervical spine surgery on 10/26/18 because of Cervical spinal stenosis with myeloradiculopathy (#1 Anterior cervical discectomy with bilateral foraminotomies C4-5. #2 anterior cervical corpectomy C6. #3 anterior cervical arthrodesis C4-C5 and C5- C7. #4 placement of Spira titanium cage 7 mm in height at C4-5 and 21 mm in height at C5-C7. #5 placement of locally harvested morselized autograft combined with DBM in the interbody cage. #6 application of colvin plate and screws from C4-C7) -Patient at home had symptoms of chest pressure like feeling in the middle of the chest associated with some tingling in the left hand and some numbness in the left leg -cardiology work up is normal -Patient was evaluated by orthopedics on 10/30/18 and suggest these paresthesia symptoms and numbness symptoms are not unusual given patient's pre-op diagnosis and subsequent operation. Orthopedics service suggested trying trial of steroids. Have discussed with patient and she does not want to do steroid trial at this time Cervical neck X ray by orthopedics generally unremarkable 1. No acute osseous abnormality is identified involving the cervical spine. 2. Postoperative change from anterior spinal fusion as above. The orthopedic hardware appears intact. 3. There is marked prevertebral soft tissue edema with foci of deep soft tissue gas. This is nonspecific and likely related to recent surgery. Patient ambulating and paresthesia symptoms and numbness symptoms generally self resolving without acute interventions Patient should follow up with 11/07/2018 1:00 PM Provider Nazia Giraldo MD Department Internal Medicine [facility] and obtain repeat complete blood counts as she is recently post-op. Patient should discuss with primary care doctor on diabetes mellitus control. Hemoglobin A1c is 7.7. Patient may resume home medications. Patient may need tighter blood pressure control and should discuss with primary care doctor. Patient was recommended by cardiology service for trial of Pepcid twice a day in case initial chest symptoms were from gastric reflux. Patient may hold off further B12 supplements for now because B12 level is 970 pg/ml which is somewhat higher than reference ranges of normal. Patient should discuss with primary care doctor about further vitamin B12 supplement use. Prescriptions: New famotidine 20 mg Tablet 20 mg PO BID 30 Days Qty: 60 RF: 0 Continued pioglitazone 15 mg Tablet 15 mg PO QAM RF: 0 atorvastatin 40 mg Tablet 40 mg PO PM RF: 0 gabapentin 600 mg Tablet 600 mg PO TID RF: 0 diltiazem HCl [DILT-XR] 240 mg Capsule,Ext.Rel 24h Degradable 240 mg PO QAM RF: 0 sumatriptan succinate [Imitrex] 50 mg Tablet 50 mg PO DAILY PRN (Reason: SINUS HEADACHES) RF: 0 acetaminophen 500 mg Tablet 1,000 mg PO QID PRN (Reason: Pain) RF: 0 glimepiride 2 mg Tablet 2 mg PO QAM RF: 0 metformin 1,000 mg Tablet 1,000 mg PO BID RF: 0 metoprolol tartrate 50 mg Tablet 50 mg PO QAM RF: 0 raloxifene 60 mg Tablet 60 mg PO QPM RF: 0 Januvia 100 mg Tablet 100 mg PO QPM RF: 0 oxycodone 5 mg Tablet 5 mg PO Q4H PRN (Reason: Pain) Qty: 20 RF: 0 calcium carbonate [Calcium 600] 600 mg calcium (1,500 mg) Tablet 600 mg PO DAILY RF: 0 cholecalciferol (vitamin D3) [Vitamin D3] 1,000 unit Capsule 1,000 unit PO DAILY RF: 0 Discontinued cyanocobalamin (vitamin B-12) [Vitamin B-12] 1,000 mcg Tablet 1,000 mcg PO QPM RF: 0 Stand-Alone Forms: [facility] Discharge Orders: Discharge Order (Routine); Ordered 10/31/18 Ordered By: Yohan Chapman Admission Data Admit Date/Time: 10/30/18 01:06 Attending Provider: Yohan Chapman Admit Provider: Horacio Bailey Primary Care Provider: Velasco,Magaly M. Other Providers: Horacio Bailey ; Aníbal Prasad ; Marlo Treviño Service: Telemetry
== END 2018-10-31 11:14 | disposition home or self-care (01) ==
LOC: ED 21:48 → 2S 21:48

== ENCOUNTER 2019-12-25 07:50 | Observation (INO) ==
--- NOTE | 2019-12-07 14:05 | PAT Medication Instructions ---
Medication Instructions Date of Service December 07, 2019 Home Medications Januvia 100 mg PO QPM acetaminophen 1,000 mg PO QID PRN atorvastatin 40 mg PO PM diltiazem HCl [DILT-XR] 240 mg PO QAM gabapentin 600 mg PO TID glimepiride 2 mg PO QAM metformin 1,000 mg PO BID metoprolol tartrate 50 mg PO QAM pioglitazone 15 mg PO QAM raloxifene 60 mg PO QPM sumatriptan succinate [Imitrex] 50 mg PO DAILY PRN calcium carbonate [Calcium 600] 600 mg PO HS cholecalciferol (vitamin D3) [Vitamin D3] 1,000 unit PO QPM famotidine 20 mg PO QAM DO NOT take the morning of surgery glimepiride 2 mg PO QAM metformin 1,000 mg PO BID pioglitazone 15 mg PO QAM Take morning of surgery With a small sip of water, OTHERWISE NOTHING TO EAT OR DRINK AFTER MIDNIGHT: acetaminophen 1,000 mg PO QID PRN (okay to take up to 4 hours prior to surgery if needed) diltiazem HCl [DILT-XR] 240 mg PO QAM gabapentin 600 mg PO TID metoprolol tartrate 50 mg PO QAM sumatriptan succinate [Imitrex] 50 mg PO DAILY PRN (if needed) famotidine 20 mg PO QAM Take evening before surgery Januvia 100 mg PO QPM acetaminophen 1,000 mg PO QID PRN (if needed) atorvastatin 40 mg PO PM gabapentin 600 mg PO TID metformin 1,000 mg PO BID raloxifene 60 mg PO QPM sumatriptan succinate [Imitrex] 50 mg PO DAILY PRN (if needed) calcium carbonate [Calcium 600] 600 mg PO HS cholecalciferol (vitamin D3) [Vitamin D3] 1,000 unit PO QPM Other Notes If you have any questions please call us at [phone] or [phone] or [phone] or [phone]
--- NOTE | 2019-12-11 12:00 | Anesthesiology Consultation ---
Date of Service December 11, 2019 Assessment & Plan (1) Encounter for pre-operative examination: Chart Review Chart Review: Acceptable Risk for Surgery (pending preop Covid testing ) and Patient seen in Pre Admission Testing - Check BSG AM DOS Per PAT appt on 12/11/19, patient resides in [facility]. Denies any recent travel. No known Covid positive contacts or Covid related symptoms. Pt scheduled for preop Covid testing 12/18/19 at [facility]. Educated on importance of self quarantining, social distancing and wearing mask in public both for the patient and household contacts. Seen by PCP 12/12/19= patient is seen for preop evaluation. Aware of Hgb A1C of 8.4. "This does put her at moderate risk for surgery based on elevated glucose and risk of delayed healing and increased risk of infection. Patient is aware. Will attempt to better control her sugars. STOP Januvia. Start Jardiance. Rec heck labs next visit (post-op). Monitor for hypoglycemia and call if any hypoglycemic episodes... Patient is acceptable risk for planned surgery. Elevated glucose puts her at slightly increased risk, but will ultimately leave that decision up to her surgeon." C4-5 ACDF; C6 corpectomy; C4-5 interbody placement 10/26/18= done under [facility] with Grade 2 view with MAC #3. ETT # 7.5 Teaching & Discussion Pre-Anesthesia Teaching/Discussion Notes: Instructed NPO after midnight before surgery,except medications with 15 cc of water. Medication instructions provided according to the PAT guidelines. History Surgery Operation Date: 12/25/19 09:35 Proposed Procedures p C3-C4 Anterior Cervical Discectomy and Fusion, Spinal Cord Monitoring - Marlo Treviño DO Height/Weight Height: 5 ft 3 in Weight: 85.9 kg Allergies Allergy/AdvReac Type Severity Reaction Status Date / Time aspirin Allergy Intermediate GI BLEEDING Verified 11/30/19 08:59 Medications Home Medications Medication Instructions Recorded Confirmed Last Taken Januvia 100 mg PO QPM 10/10/18 11/30/19 10/28/18 acetaminophen 1,000 mg PO QID PRN 10/10/18 11/30/19 3 Days Ago ~10/23/18 atorvastatin 40 mg PO PM 10/10/18 11/30/19 10/28/18 diltiazem HCl [DILT-XR] 240 mg PO QAM 10/10/18 11/30/19 10/28/18 gabapentin 600 mg PO TID 10/10/18 11/30/19 10/28/18 glimepiride 2 mg PO QAM 10/10/18 11/30/19 10/28/18 metformin 1,000 mg PO BID 10/10/18 11/30/19 10/28/18 metoprolol tartrate 50 mg PO QAM 10/10/18 11/30/19 10/28/18 pioglitazone 15 mg PO QAM 10/10/18 11/30/19 10/28/18 raloxifene 60 mg PO QPM 10/10/18 11/30/19 10/28/18 sumatriptan succinate [Imitrex] 50 mg PO DAILY PRN 10/10/18 11/30/19 1 Week Ago ~10/19/18 calcium carbonate [Calcium 600] 600 mg PO HS 10/29/18 11/30/19 10/27/18 cholecalciferol (vitamin D3) 1,000 unit PO QPM 10/29/18 11/30/19 10/28/18 [Vitamin D3] famotidine 20 mg PO QAM 11/30/19 11/30/19 Unknown Past Medical History Medical History (Updated 12/11/19 @ 12:36 by Lisa Solis PA-C) Diabetes mellitus, type 2 Glucose fluctuates Diabetic neuropathy Bilateral feet Fatty liver No jaundice - no known issues with LFTs History of kidney cancer Dx'ed 2015 - s/p partial right nephrectomy- no chemo or XRT needed- no issues Hx of migraine headaches R/T WEATHER RELATED Hyperlipidemia Hypertension Osteoarthritis Spinal stenosis in cervical region Thyroid nodule Noted incidentally on cervical MRI- PCP monitoring Exercise / Class Metabolic Activity II 4-5 Yardwork/Stairs/Walk up hill (one flight of stairs - no chest pain or SOB) Past Family History Family History Sister Family history of diabetes mellitus Sister Family history of diabetes mellitus Brother Family history of diabetes mellitus Aunt Family history of diabetes mellitus Past Surgical History Surgical History Family history of reaction to anesthesia MOTHER-NAUSEA Fusion of spine CERVICAL SPINE History of esophagogastroduodenoscopy (EGD) History of kidney surgery RIGHT SIDE TO HAVE "CANCER REMOVED"- THAT WAS LAYING ON TOP OF KIDNEY (partial right nephrectomy) 09/10/2015 [facility] History of left knee replacement History of tonsillectomy and adenoidectomy History of total right knee replacement History of tubal ligation Hx of appendectomy Hx of colonoscopy Hx of removal of cyst X3 LEFT BREAST Nausea and vomiting after administration of anesthetic agent Past Anesthesia History No Hx of Anesthesia Complications (with exception to PONV ) and No Family Hx of Anesthesia Complications (with exception to mother - PONV ) History of PONV History of PONV (no recent issues - controlled with IV nausea meds ) and Hx of Motion Sickness STOP BANG Total 2 Social History Smoking Status: Never smoker Do You Dip or Chew Tobacco: No Hx Alcohol Use: No Hx Substance Use: No substance use type: does not use Review of Systems Hx of blood transfusion- s/p surgery Patient denies chest pain, shortness of breath, dyspnea on exertion, reflux, cough, wheezing, palpitations. No hx of seizures, stroke, DC, apnea/snoring. No hx of blood clots. Physical Exam Vital Signs VITALS BP 147/84 P 60 TEMP 98.2 SP02 97% RESP 16 Constitutional no acute distress ENMT Mouth: no TMJ clicking Thyromental Distance: > or= 3.5 Finger Breadths (3.5) Mallampati Class: I Crowns on bottom molars Neck + short neck (mild ), + thick neck (mild ) and + limited neck extension (mild ) Respiratory normal respiratory effort; no respiratory distress Auscultation: lungs clear to auscultation bilaterally; no wheezes Cardiovascular Rate/Rhythm: regular rate and regular rhythm Heart Sounds: no murmur Vessels: no carotid bruit Musculoskeletal Spine: no pain with cervical ROM Neurologic moves all extremities Psychiatric Orientation: alert Testing Laboratory Results 12/11/19 12:24 12/11/19 12:24 PT 10.9 Seconds (9.0-12.0) 12/11/19 12:24 INR 1.0 (0.9-1.1) 12/11/19 12:24 APTT 27.1 Seconds (21.0-31.0) 12/11/19 12:24 Hemoglobin A1c 8.4 % (4.5-5.6) H 12/11/19 12:24 Urine Color Yellow 12/11/19 12:24 Urine Appearance Clear (Clear) 12/11/19 12:24 Urine pH 5.0 (4.5-7.5) 12/11/19 12:24 Ur Specific [place] 1.028 (1.000-1.030) 12/11/19 12:24 Urine Protein Negative (Negative) 12/11/19 12:24 Urine Glucose (UA) 2+ (Negative) H 12/11/19 12:24 Urine Ketones Trace (Negative) H 12/11/19 12:24 Urine Nitrite Negative (Negative) 12/11/19 12:24 Ur Leukocyte Esterase Negative (Negative) 12/11/19 12:24 Blood Type O Positive 12/11/19 12:24 Antibody Screen NEGATIVE 12/11/19 12:24 Electrocardiogram Date: 12/11/19 Findings: + NSR @ (61) Normal EKG. Chest X-Ray Date: 12/11/19 Findings: + NAD and + cardiomegaly (mild and stable ) There is a tortuous thoracic aorta. Echocardiogram Date: 10/11/18 EF: 55-60% LV Function: normal RWMA: + none Other Findings: + diastolic dysfunction (Grade I) Moderate aortic valve sclerosis is present, without significant aortic valvular stenosis Stress Test Date: 08/27/15 Type: DSE Findings: + WNL Resting EF: 55-59% Resting LV Function: dysfunctional (mildly abnormal (grade I)) Mild aortic valve sclerosis is present, aortic stenosis is absent The stress echo is negative for inducible ischemia. Stress EKG response showed no evidence of ischemia The stress test was terminated due to target HR was achieved. No symptoms were noted. The HR and BP response to pharmacologic stress was normal.
--- NOTE | 2019-12-11 13:01 | XRay Report ---
XR chest Pre-admission PA/Lat HISTORY: Preop. COMPARISON: Chest 10/29/2018. FINDINGS: The lungs are clear. The heart remains mildly enlarged. There is a tortuous thoracic aorta. No pleural effusions. No pneumothorax. Cervical spinal fusion hardware is noted. IMPRESSION: Stable cardiomegaly. No acute process within the chest. ACT 112: Negative or not required by law. Electronically signed by: Fredo Lopez M.D. 12/11/2019 1:00 PM
[2019-12-11 13:31] LABS: Appearance Urine Clear (Clear); Bilirubin Urine Negative (Negative); Blood Urine Negative (Negative); Color Urine Yellow; Glucose Urine UA 2+ (Negative); Ketones Urine Trace (Negative); Leukocyte Esterase Urine Negative (Negative); Nitrite Urine Negative (Negative); Protein Urine Negative (Negative); Specific Gravity Urine 1.028 (1.000-1.030); Urobilinogen Urine Negative (Negative)
[2019-12-11 13:39] LABS: Basophils # (auto) 0.02 K/uL (0-0.2); Basophils % (auto) 0.2 %; Eosinophils # (auto) 0.18 K/uL (0-0.5); Eosinophils % (auto) 2.1 %; Hematocrit (blood only) 39.8 % (37-47); Hemoglobin 12.7 g/dL (12.0-16.0); Immature Granulocytes # (auto) 0.03 K/uL (0.00-0.02); Immature Granulocytes % (auto) 0.3 %; Lymphocytes # (auto) 2.26 K/uL (1.2-3.4); Lymphocytes % (auto) 25.9 %; Mean Corpuscular Hemoglobin 28.6 pg (25-34); Mean Corpuscular Hgb Conc 31.9 g/dL (32-36); Mean Corpuscular Volume 89.6 fL (80-100); Mean Platelet Volume 11.1 fL (7.4-10.4); Monocytes # (auto) 0.61 K/uL (0.11-0.59); Neutrophils # (auto) 5.63 K/uL (1.4-6.5); Neutrophils % (auto) 64.5 %; Platelet Count 334 K/uL (130-400); RDW Coefficient of Variation 14.1 % (11.5-14.5); RDW Standard Deviation 46.4 fL (36.4-46.3); Red Blood Count 4.44 M/uL (4.2-5.4); White Blood Count 8.73 K/uL (4.8-10.8)
[2019-12-11 13:45] LABS: Partial Thromboplastin Time 27.1 Seconds (21.0-31.0); Prothrombin Time 10.9 Seconds (9.0-12.0)
--- NOTE | 2019-12-11 14:02 | Electrocardiogram Report ---
Test Reason : Blood Pressure : / mmHG Vent. Rate : 061 BPM Atrial Rate : 061 BPM P-R Int : 202 ms QRS Dur : 100 ms QT Int : 408 ms P-R-T Axes : 041 055 080 degrees QTc Int : 410 ms Normal sinus rhythm Normal ECG When compared with ECG of 31-OCT-2018 06:46, Nonspecific ST abnormality no longer present Voltage criteria for left ventricular hypertrophy no longer present Confirmed by Easton Bardales ([id number]) on 12/11/2019 2:02:06 PM Referred By: Marlo Treviño Confirmed By:Easton Bardales
[2019-12-11 14:03] LABS: Estimated Average Glucose 194 mg/dl; Hemoglobin A1C 8.4 % (4.5-5.6)
[2019-12-11 14:18] LABS: BUN Creatinine Ratio 18.7 (10-20); Calcium 10.1 mg/dl (8.5-10.1); Creatinine Clr Calc Pharmacy 51.5 ml/min; Est GFR (African American) 65.4; Est GFR (Non-African American) 56.4; Potassium 4.7 mmol/L (3.5-5.1)
[~2019-12-25 07:50] MED LIST changes: -CEFAZOLIN 2000MG 2,000 MG/15 ML SYR IV SCH; -SCOPOLAMINE 1.5 MG TDSY TD SCH; +ceFAZolin 2000MG 2,000 MG/15 ML SYR IV SCH
--- NOTE | 2019-12-25 09:15 | History & Physical Bridge Note ---
Date of Service December 25, 2019 History & Physical Bridge Note I have examined the patient, reviewed the History & Physical and in the interval since the performance of the History & Physical I have noted the following changes of clinical significance: no changes noted
--- NOTE | 2019-12-25 09:16 | History & Physical Report ---
Date of Service December 25, 2019 Assessment & Plan (1) Cervical stenosis of spinal canal: Admission and Anticipated Discharge Date Admission Date: C3-C4 anterior cervical discectomy and fusion History of Present Illness Chief Complaint: Neck and bilateral arm pain Primary Care Provider: Magaly Velasco DO This is a 74-year-old female presents with chronic persistent neck and arm symptoms after failing course of nonoperative care is here for surgical invention. Allergies Allergy/AdvReac Type Severity Reaction Status Date / Time aspirin Allergy Intermediate GI BLEEDING Verified 12/25/19 08:29 Home Medications Home Medications Medication Instructions Recorded Confirmed Type acetaminophen 1,000 mg PO QID PRN 10/10/18 12/25/19 History atorvastatin 40 mg PO PM 10/10/18 12/25/19 History diltiazem HCl [DILT-XR] 240 mg PO QAM 10/10/18 12/25/19 History gabapentin 600 mg PO TID 10/10/18 12/25/19 History glimepiride 2 mg PO QAM 10/10/18 12/25/19 History metformin 1,000 mg PO BID 10/10/18 12/25/19 History metoprolol tartrate 50 mg PO QAM 10/10/18 12/25/19 History pioglitazone 15 mg PO QAM 10/10/18 12/25/19 History raloxifene [Evista] 60 mg PO QPM 10/10/18 12/25/19 History sumatriptan succinate [Imitrex] 50 mg PO DAILY PRN 10/10/18 12/25/19 History calcium carbonate [Calcium 600] 600 mg PO HS 10/29/18 12/25/19 History cholecalciferol (vitamin D3) 1,000 unit PO QPM 10/29/18 12/25/19 History [Vitamin D3] famotidine 20 mg PO QAM 11/30/19 12/25/19 History empagliflozin [Jardiance] 25 mg PO DAILY 12/13/19 12/25/19 History mecobalamin (vitamin B12) [B12 1,000 mcg PO DAILY 12/25/19 12/25/19 History Active] Past Med/Surg History Medical History Diabetes mellitus, type 2 Glucose fluctuates Diabetic neuropathy Bilateral feet Fatty liver No jaundice - no known issues with LFTs History of kidney cancer Dx'ed 2016 - s/p partial right nephrectomy- no chemo or XRT needed- no issues Hx of migraine headaches R/T WEATHER RELATED Hyperlipidemia Hypertension Osteoarthritis Spinal stenosis in cervical region Thyroid nodule Noted incidentally on cervical MRI- PCP monitoring Surgical History Family history of reaction to anesthesia MOTHER-NAUSEA Fusion of spine CERVICAL SPINE History of esophagogastroduodenoscopy (EGD) History of kidney surgery RIGHT SIDE TO HAVE "CANCER REMOVED"- THAT WAS LAYING ON TOP OF KIDNEY (partial right nephrectomy) 09/10/2015 [facility] History of left knee replacement History of tonsillectomy and adenoidectomy History of total right knee replacement History of tubal ligation Hx of appendectomy Hx of colonoscopy Hx of removal of cyst X3 LEFT BREAST Nausea and vomiting after administration of anesthetic agent Family History Sister Family history of diabetes mellitus Sister Family history of diabetes mellitus Brother Family history of diabetes mellitus Aunt Family history of diabetes mellitus Social History Smoking Status: Never smoker Second Hand Exposure: No; Do You Dip or Chew Tobacco: No; Tobacco Cessation Education Requested by Patient: No Hx Alcohol Use: No Hx Substance Use: No Preferred Language: Danish Communication Ability: Effective Assembler Carbon Brushes Required: No Beliefs That Will Affect Care: None Current Living Situation: Spouse Feels Safe at Home: Yes Safety Concerns: Feels Safe At This Time Assistive Devices: Glasses Physical Exam Physical Exam: Patient is alert and oriented Heart regular in rhythm Lungs clear to auscultation Results & Data ([facility]) Vital Signs (Past 12 Hours) Vital Signs Temp Pulse Resp BP Pulse Ox 12/25/19 08:37 36.6 C 58 L 20 150/93 H 97
[2019-12-25] MEDS ORDERED: ATROPINE SULFATE 0.1 MG/ML 10ML SYR IV PRN (09:18)
[2019-12-25] MEDS ORDERED: ePHEDrine sulfate 50 MG/ML AMP IV PRN (09:18)
[2019-12-25] MEDS ORDERED: ONDANSETRON INJ 2 MG/ML 2 ML VIAL IV PRN ×2 (09:18→12:40)
[2019-12-25] MEDS ORDERED: BACITRACIN INJ 50,000 UNIT VIAL ONE (09:27)
[2019-12-25] MEDS ORDERED: MIDAZOLAM HCL 1 MG/ML 2ML VIAL ONE (09:32)
[2019-12-25] MEDS ORDERED: fentaNYL citrate 100 MCG/2 ML VIAL ONE ×2 (09:32→10:26)
[2019-12-25] MEDS ORDERED: FLOSEAL HEMOSTATIC MATRIX 10ML TOP ONE (10:22)
[2019-12-25] MEDS ORDERED: NEOSTIGMINE METHYLSULFATE 1 MG/ML 10ML VIAL ONE (10:46)
[2019-12-25] MEDS ORDERED: ROCURONIUM BROMIDE 10 MG/ML 5 ML VIAL IV ONE (10:46)
[2019-12-25] MEDS ORDERED: PROPOFOL IV EMULSION 10 MG/ML 20 ML VIAL IV ONE (10:46)
[2019-12-25] MEDS ORDERED: LARYING-O-JET KIT (LTA) ONE (10:46)
[2019-12-25] MEDS ORDERED: LIDOCAINE HCL 2% 2 ML VIAL/AMP(20MG/ML) INFIL ONE (10:46)
[2019-12-25] MEDS ORDERED: GLYCOPYRROLATE 0.2 MG/ML VIAL ONE (10:46)
--- NOTE | 2019-12-25 11:07 | Operative Report ---
Post Operative Report Pre & Post Diagnosis Operation Date: 12/25/19 09:35 Pre-Op Diagnosis: Spinal Stenosis, Cerivcal Region Post-Op Diagnosis: Spinal Stenosis, Cerivcal Region I identified the patient and participated in the time-out.: Yes Procedure Operation Date: 12/25/19 09:35 Actual Procedures #1 anterior cervical discectomy with bilateral foraminotomies C3-C4. #2 anterior cervical arthrodesis C3-C4. #3 placement of globus stand-alone interbody cage filled with DBM 6 mm in height at C3-C4. Surgeon Marlo Treviño, DO Scaler Packer Gin Romeo Estimated Blood Loss 10 Findings Consistent with Post-Op Diagnosis Specimens None Indications This is a 74-year-old female known to me the presents with above-mentioned diagnosis after failing course of nonoperative care is here for the above- mentioned procedure. Description of Procedure Patient was met with identified informed consent obtained. Patient was then taken to the operative suite underwent elevation placed in a supine position on the Pino table with head Tapia baggage porter head. All bony prominences well-padded eyes inspected to ensure no external pressure placed upon them. This point the anterior cervical spine was prepped and draped in normal sterile fashion. The assistance of fluoroscopy identified the C3-C4 disc base and a transverse incision was placed along the right anterior aspect of the cervical spine overlying this region. Sharp dissection with assistance of bipolar electrocautery was performed down to and exposing the anterior cervical spine at C3-C4. A self-retaining retractor was placed. Then performed a complete discectomy of C3-4 out to the uncovertebral joints bilaterally. I removed all posterior annular fibers longitudinal ligament performed complete decompression. Endplates were then burred to subcortical bleeding bone and a 6 mm globus stand-alone coalition interbody construct filled with DBM tapped in position and screwed into place with fluoroscopic visualization. The incision was then copiously irrigated explored to ensure no damage to surrounding structures r emaining bleeding and a 10 round LASHON drain inserted. Was then closed with 2 Vicryl in the fashion of 4 Monocryl for final skin closure. Steri-Strip sterile dressings placed. Patient waken taken to PACU stable condition. Please note spinal cord monitoring was utilized that the procedure and no changes noted. Lastly Gin Romeo was present at the entire surgery involved the patient positioning complex portions of the surgery and final skin closure. I attest to the content of the Intraoperative Record and any orders documented therein. Any exceptions are noted below.
[2019-12-25] MEDS: fentaNYL citrate 100 MCG/2 ML VIAL IV PRN ×4 (11:28→11:43)
--- NOTE | 2019-12-25 11:39 | Fluoroscopy Report ---
FL cervical 2-3V CLINICAL HISTORY: ACDF C3-C4 COMPARISON STUDY: None. FLUOROSCOPY TIME: 7 seconds. FINDINGS: 2 fluoroscopic spot images of the cervical spine demonstrate anterior cervical discectomy a nd fusion at C3-C4. Evidence for prior C4-C7 ACDF. The hardware appears intact. IMPRESSION: Fluoroscopy provided for interval C3-C4 ACDF. ACT 112: Negative or not required by law. Electronically signed by: Fredo Lopez M.D. 12/25/2019 11:38 AM
[2019-12-25] MEDS ORDERED: HYDROmorphone INJ 1 MG/ML SYRINGE ONE (11:47)
[2019-12-25] MEDS: HYDROmorphone INJ 1 MG/ML SYRINGE IV PRN ×4 (11:48→12:03)
[2019-12-25] MEDS ORDERED: HYDROmorphone INJ 1 MG/ML SYRINGE IV PRN (12:40)
[2019-12-25] MEDS ORDERED: LORazepam 0.5 MG/1 ML VIAL IV PRN (12:40)
[2019-12-25] MEDS ORDERED: ONDANSETRON 4 MG OD TAB PO PRN (12:40)
[2019-12-25] MEDS ORDERED: NALOXONE HCL 0.4 MG/1 ML VIAL/CARP IV PRN (12:40)
[2019-12-25] MEDS ORDERED: MAGNESIUM HYDROXIDE SUSP 30 ML UDC PO PRN (12:40)
[2019-12-25] MEDS ORDERED: traMADol HCL 50 MG TABLET PO PRN (12:40)
[2019-12-25] MEDS ORDERED: hydrOXYzine HCl 25 MG TAB PO PRN (12:40)
[2019-12-25] MEDS ORDERED: ACETAMINOPHEN 500 MG TAB PO PRN (12:40)
[2019-12-25] MEDS ORDERED: DEXAMETHASONE SOD PHOSPHATE 8 MG in SYRINGE 0 ML IV PRN (12:40)
[2019-12-25] MEDS ORDERED: FAMOTIDINE 20 MG TAB PO PRN (12:40)
[2019-12-25] MEDS ORDERED: DO NOT ADMINISTER FLU VACCINE PRN (12:40)
[2019-12-25] MEDS ORDERED: diphenhydrAMINE Capsule 25 MG CAP PO PRN (12:40)
[2019-12-25] MEDS ORDERED: ACETAMINOPHEN 1,000 MG/100 ML VIAL IV PRN (12:40)
[2019-12-25] MEDS ORDERED: METOCLOPRAMIDE HCL INJ 5 MG/ML 2 ML VIAL IV PRN (12:40)
[2019-12-25] MEDS ORDERED: SOD PHOSPHATE/SOD BIPHOSPHATE ENEMA 132 ML BTL PR PRN (12:40)
[2019-12-25] MEDS ORDERED: RACEPINEPHRINE 2.25% NEBU SOLN 0.5 ML VIAL INH PRN (12:40)
[2019-12-25] MEDS ORDERED: PROMETHAZINE HCL 12.5 MG in SODIUM CHLORIDE 0.9% 50 ML IV PRN (12:40)
[2019-12-25] MEDS ORDERED: ALUMINUM/MAGNESIUM SUSP 30 ML UDC PO PRN (12:40)
[2019-12-25] MEDS ORDERED: LORazepam 0.5 MG TAB PO PRN (12:40)
[2019-12-25] MEDS ORDERED: DO NOT ADMINISTER PNEUMOCOCCAL VACCINE PRN (12:40)
[2019-12-25] MEDS ORDERED: HYDROmorphone INJ 0.5 MG/0.5 ML SYR IV PRN (12:40)
[2019-12-25] MEDS ORDERED: SUMAtriptan succinate 50 MG TAB PO PRN (12:40)
[2019-12-25] MEDS ORDERED: oxyCODONE HCL IR 5 MG TAB (IMMEDIATE RELEASE) PO PRN (12:40)
[2019-12-25] MEDS ORDERED: PHARMACY GLYCEMIC MGMT CONSULT PRN (13:27)
[2019-12-25] MEDS ORDERED: GLUCAGON FOR INJ 1 MG VIAL IM PRN (13:45)
[2019-12-25] MEDS ORDERED: GLUCOSE 40% GEL 15 GM TUBE PO PRN (13:45)
[2019-12-25] MEDS ORDERED: GLUCOSE 10 TABS/TUBE PO PRN (13:45)
[2019-12-25] MEDS ORDERED: DEXTROSE 50% 50 ML SYRINGE IV PRN (13:45)
[2019-12-25] MEDS ORDERED: INSULIN GLARGINE SOLOSTAR 100 UNITS/ML 3 ML PEN SC ONE (13:45)
[2019-12-25] MEDS ORDERED: CARBOHYDRATES FOR HYPOGLYCEMIA PO PRN (13:45)
--- NOTE | 2019-12-25 13:52 | Pharmacy Report ---
Glycemic Control Consultation - Date of Service December 25, 2019 - Scope Scope: Glycemic Pharmacist consulted for glycemic control and to write orders per [facility] inpatient glycemic control protocol. - Objective Weight: 85.1 kg Accuchecks BSG (last 24hrs): 12/25/19 12/25/19 08:25 11:22 POC Glucose 247 H 208 H HbA1c: Hemoglobin A1c 8.4 % (4.5-5.6) H 12/11/19 12:24 - Recent Pertinent Medications Outpatient Anti-diabetic Regimen: * Metformin 1 gm BIDM + Glimepiride 2 mg qAM + Jardiance 25 mg qAM + Actos 15 mg qAM * A1c = 8.4% (12/11/2019) Risk Factors for Insulin Resistance: * Recent Surgery: * POD #0 * Diet: * Clear liquids - Assessment & Plan Assessment & Plan: ASSESSMENT: * 74 yo F admitted for observation s/p C3-C4 discectomy and fusion. Pharmacy is consulted for inpatient glycemic management. PMHx is significant for T2DM, diabetic neuropathy, HLD, HTN, and h/o kidney CA s/p partial right nephrectomy. * Pre-operative BSG was 247 mg/dL. Post-operative BSG was 208 mg/dL. I cannot see where any steroids were given pre- or intra-operatively. PRN dexamethasone is order post-operative for stridor. Will monitor if this is given. * Will given the full daily dose of Lantus 30 units x 1 based on weight and stress of 2 given hyperglycemia pre- and post-operatively. Will add a Lantus scale for this evening in the event hyperglycemia continues. * Will start Novolog based on a weight and stress of 2. If post-operative steroids are ordered, will likely need to tighten Novolog parameters. PLAN FOR INPATIENT GLYCEMIC CONTROL: * Holding outpatient oral diabetes medications * Basal insulin * Lantus 30 units SQ x 1 * Lantus 0-15 units SQ BID per scale (see eMAR for more details) * Bolus insulin * NovoLog per scale ACHS or Q6hrs while NPO * Goal Range: Low 110 mg/dL - High 140 mg/dL * Correction Factor: 30 mg/dL/unit * Nutritional / Prandial insulin per carb ratio of 1 unit per 10 grams CHO consumed * Please note that the plan above was derived based on current level of insulin resistance and hospital stress. These recommendations are appropriate for inpatient admission only. Plan of care upon discharge will need to be reassessed to avoid potential outpatient hypo/hyperglycemia. Thank you.
--- NOTE | 2019-12-25 14:23 | Consultation ---
Date of Consultation December 25, 2019 Assessment & Plan (1) Cervical stenosis of spinal canal: Status post ACDF C3-[address] Treviño POD #0 EBL 10 mL; LASHON drain in place Tolerated procedure well Pain/wound management per orthopedics Activity and therapy as directed by Ortho Monitor H&H Wean oxygen as able (2) Diabetes mellitus, type 2: Uncontrolled, last A1c 8.4 12/11/2019 On Metformin, pioglitazone, glimepiride and Jardiance as outpatient Glycemic pharmacist on board -appreciate their assistance in management (3) Hypertension: Blood pressure stable Continue metoprolol and diltiazem, parameters in place (4) Hyperlipidemia: Continue statin (5) Diabetic neuropathy: Continue gabapentin (6) DVT prophylaxis: SCD/TEDS Disposition: per primary Follow up: PCP Dr. Velasco upon discharge Pt was seen and examined in collaboration with Dr. Angela, please see addendum Starting 12/26/2019 pt will be under the care of Dr. Sam Thank you for this consultation. We will follow the patient with you during their hospital stay. You can reach a member of the [facility] Hospitalist Team 14/09 via pager @ [phone]. 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 Treviño Reason for Consultation: Postop medical management Attending Physician: Marlo Treviño DO History of Present Illness This is a 74-year-old female with significant past medical history of T2DM, HTN, HLD, diabetic neuropathy, osteoporosis, history of migraines, history of renal cell CA status post partial nephrectomy, history of LCIS of breast, cervical spinal stenosis who presents for elective C3-[address] Treviño. She tolerated the procedure well. She currently complains of neck pain 08/31. She is currently drinking liquid breakfast. Denies difficulty swallowing but does complain of burning to back of throat. Denies fever, chills, sweats, lightheadedness, dizziness, chest pain, shortness of breath, cough, nausea, vomiting, abdominal pain. She currently has oxygen in place and denies oxygen use at home. She is a diabetic with a recent A1c of 8.4. She is currently managed on Metformin, glipizide and Jardiance. She previously had been on Januvia but does was discontinued 1 week ago. She also history of HTN controlled on metoprolol and diltiazem. is at bedside. Allergies Allergy/AdvReac Type Severity Reaction Status Date / Time aspirin Allergy Intermediate GI BLEEDING Verified 12/25/19 08:29 Home Medications Home Medications Medication Instructions Recorded Confirmed Type acetaminophen 1,000 mg PO QID PRN 10/10/18 12/25/19 History atorvastatin 40 mg PO PM 10/10/18 12/25/19 History diltiazem HCl [DILT-XR] 240 mg PO QAM 10/10/18 12/25/19 History gabapentin 600 mg PO TID 10/10/18 12/25/19 History glimepiride 2 mg PO QAM 10/10/18 12/25/19 History metformin 1,000 mg PO BID 10/10/18 12/25/19 History metoprolol tartrate 50 mg PO QAM 10/10/18 12/25/19 History pioglitazone 15 mg PO QAM 10/10/18 12/25/19 History raloxifene [Evista] 60 mg PO QPM 10/10/18 12/25/19 History sumatriptan succinate [Imitrex] 50 mg PO DAILY PRN 10/10/18 12/25/19 History calcium carbonate [Calcium 600] 600 mg PO HS 10/29/18 12/25/19 History cholecalciferol (vitamin D3) 1,000 unit PO QPM 10/29/18 12/25/19 History [Vitamin D3] famotidine 20 mg PO QAM 11/30/19 12/25/19 History empagliflozin [Jardiance] 25 mg PO DAILY 12/13/19 12/25/19 History mecobalamin (vitamin B12) [B12 1,000 mcg PO DAILY 12/25/19 12/25/19 History Active] oxycodone 5 mg PO Q6H PRN #15 tab 12/25/19 Rx tramadol 50 mg PO Q6H PRN #15 tab 12/25/19 Rx Patient History Medical History (Updated 12/25/19 @ 14:36 by Mandy Amaral PA-C) Diabetes mellitus, type 2 Glucose fluctuates Diabetic neuropathy Bilateral feet Fatty liver No jaundice - no known issues with LFTs History of kidney cancer Dx'ed 2016 - s/p partial right nephrectomy- no chemo or XRT needed- no issues Hx of migraine headaches R/T WEATHER RELATED Hyperlipidemia Hypertension Osteoarthritis Spinal stenosis in cervical region Thyroid nodule Noted incidentally on cervical MRI- PCP monitoring Surgical History Family history of reaction to anesthesia MOTHER-NAUSEA Fusion of spine CERVICAL SPINE History of esophagogastroduodenoscopy (EGD) History of kidney surgery RIGHT SIDE TO HAVE "CANCER REMOVED"- THAT WAS LAYING ON TOP OF KIDNEY (partial right nephrectomy) 09/10/2015 [facility] History of left knee replacement History of tonsillectomy and adenoidectomy History of total right knee replacement History of tubal ligation Hx of appendectomy Hx of colonoscopy Hx of removal of cyst X3 LEFT BREAST Nausea and vomiting after administration of anesthetic agent Family History (Updated 12/25/19 @ 14:22 by Mandy Amaral PA-C) Sister Family history of diabetes mellitus Sister Family history of diabetes mellitus Brother Family history of diabetes mellitus Aunt Family history of diabetes mellitus Father , 68 Myocardial infarction Social History Smoking Status: Never smoker Second Hand Exposure: No; Do You Dip or Chew Tobacco: No; Tobacco Cessation Education Requested by Patient: No Hx Alcohol Use: No Hx Substance Use: No Preferred Language: Angolan Communication Ability: Effective Advertising Assistant Required: No Beliefs That Will Affect Care: None Current Living Situation: Spouse Feels Safe at Home: Yes Safety Concerns: Feels Safe At This Time Assistive Devices: Glasses Review of Systems Review of Systems: All systems reviewed & are unremarkable except as noted in HPI & below Physical Exam Physical Exam: Constitutional: WD/WN, female, drowsy, vitals as above, NAD, sitting up in bed, easily falls asleep but arousable to verbal stimulation Head: Normocephalic, Atraumatic Eyes: PERRL, conjunctivae normal, anicteric sclerae ENMT: external ear and nose normal, oropharynx normal Neck: Dressing CDI with LASHON drain intact with serosanguineous drainage, trachea midline, Respiratory: normal respiratory effort, lungs clear to auscultation, no wheeze, rales, rhonchi. Normal insp/exp effort, no accessory muscle use Cardiovascular: RRR, 1/6 SHANNON RUSB, bilateral SCD/teds in place Vessels: no JVD or carotid bruit Chest: normal inspection of chest Abdomen: normal bowel sounds, soft, nontender, no hepatosplenomegaly Musculoskeletal: no cyanosis or clubbing, active range of motion to extremities x4 Skin: no rashes, warm and dry normal turgor Neurologic: PERRL, EOMI, accommodation nl, no face palsy, no dysarthria CN's II-XI intact bilaterally and moves all extremities Psychiatric: A+Ox3, euthymic affect Lymphatic: no cervical or axillary lymphadenopathy : deferred Results & Data ([facility]) Vital Signs (Past 12 Hours) Vital Signs Temp Pulse Pulse Resp BP BP Pulse Ox 12/25/19 13:43 36.7 C 76 12 134/74 96 12/25/19 13:35 66 16 95 12/25/19 13:10 36.8 C 65 12 157/75 H 96 12/25/19 12:40 36.8 C 56 L 16 164/74 H 95 12/25/19 12:25 36.6 C 59 L 16 150/81 H 94 12/25/19 12:15 62 16 157/84 H 94 12/25/19 12:05 62 16 161/76 H 94 12/25/19 11:55 60 16 160/84 H 97 12/25/19 11:45 58 L 16 174/83 H 97 12/25/19 11:35 54 L 16 169/85 H 97 12/25/19 11:25 65 16 168/93 H 96 12/25/19 11:19 36.3 C L 75 16 182/88 H 94 12/25/19 08:37 36.6 C 58 L 20 150/93 H 97 Laboratory Results Pre op lab results: 12/11/19 A1C 8.4, hgb 12.7, cr 0.98, glucose 187 MRI C Spine 11/15/19: IMPRESSION: 1. C3-C4 severe spinal canal stenosis, increased compared with August 2018, resulting in new cord compression. New C3-C4 disc level T2 hyperintense cord signal. 2. Interval C4-C7 ACDF, C4-C5 intervertebral disc spacer placement, and C6 corpectomy with metallic strut graft placement. Moderate C6-C7 and mild C4-C5 and C5-C6 spinal canal stenoses, decreased compared with August 2018. C5 vertebral level and C7 vertebral level T2 hyperintense spinal cord signal, decreased compared with August 2018. C6-C7 right cord compression resolution compared with August 2018. However, C6-C7 left cord compression is unchanged. 3. Mild C2-C3 spinal canal stenosis, new compared with August 2018. 4. Moderate right C2-C3 neural foraminal narrowing, increased compared to August 2018. Correlation with dermatomal symptom level recommended. 5. C7-T1 fibrovascular degenerative endplate changes, new compared with August 2018. Fibrovascular degenerative endplate changes may be symptomatic. 6. Otherwise, stable cervical spine degenerative changes compared with August 2018 cervical spine MR. 7. Additional moderate C7-T1 spinal canal stenosis. 8. Severe left C2-C3, bilateral C3-C4, right C4-C5, bilateral C5-C6, bilateral C6-C7, and bilateral C7-T1 neural foraminal narrowing. Moderate left C4-C5 neural foraminal narrowing. Correlation with dermatomal symptom level recommended. 9. Convex left cervicothoracic scoliosis incompletely evaluated, measuring 15 degrees by Stephenson method between C2 superior lateral masses and inferior T4 endplate. Weightbearing scoliosis x-ray could further assess. 10. Grade I anterolisthesis of C3 on C4. 11. 19 mm left thyroid lobe T1/T2 hyperintense nodule. Nonemergent thyroid ultrasound is recommended to further evaluate. Significant Abnormal Result: C3-C4 severe spinal canal stenosis, increased compared with August 2018, resulting in new cord compression. New C3-C4 disc level T2 hyperintense cord signal. Interval C4-C7 ACDF, C4-C5 intervertebral disc spacer placement, and C6 corpectomy with metallic strut graft placement. Moderate C6-C7 and mild C4-C5 and C5-C6 spinal canal stenoses, decreased compared with August 2018. C5 vertebral level and C7 vertebral level T2 hyperintense spinal cord signal, decreased compared with August 2018. C6-C7 right cord compression resolution compared with August 2018. However, C6-C7 left cord compression is unchanged. Diagnostic Findings C spine Xray: IMPRESSION: Fluoroscopy provided for interval C3-C4 ACDF. CXR: IMPRESSION: Stable cardiomegaly. No acute process within the chest. Medications Administered Acetaminophen (Acetaminophen 500 Mg Tab) 1,000 mg PO PREOP PRABHJOT Stop: 12/25/19 18:00 Last Admin: 12/25/19 08:49 Dose: 1,000 mg Documented by: [id number] Celecoxib (Celebrex 200 Mg Cap) 200 mg PO PREOP PRABHJOT Stop: 12/25/19 18:00 Last Admin: 12/25/19 08:49 Dose: 200 mg Documented by: [id number] Gabapentin (Gabapentin 300 Mg Cap) 300 mg PO PREOP PRABHJOT Stop: 12/25/19 18:00 Last Admin: 12/25/19 08:49 Dose: 300 mg Documented by: [id number] Hydromorphone HCl (Hydromorphone Inj 1 Mg/Ml Syringe) 0.25 mg IV Q5M PRN PRN Reason: PACU Use Only-Pain Stop: 12/25/19 19:46 Last Admin: 12/25/19 12:03 Dose: 0.25 mg Documented by: [id number] Admin: 12/25/19 11:58 Dose: 0.25 mg Documented by: [id number] Admin: 12/25/19 11:53 Dose: 0.25 mg Documented by: [id number] Admin: 12/25/19 11:48 Dose: 0.25 mg Documented by: [id number] Lactated Ringer's (Lr) 1,000 mls @ 15 mls/hr IV .Q24H PRABHJOT Stop: 12/26/19 05:59 Last Infusion: 12/25/19 09:42 Dose: 0 mls/hr Documented by: [id number] Admin: 12/25/19 08:49 Dose: 15 mls/hr Documented by: [id number] Cefazolin Sodium (Ancef 2000mg) 2,000 mg in 15 mls @ 3.75 mls/min IV PREOP PRABHJOT; Protocol Stop: 12/25/19 18:00 Last Admin: 12/25/19 09:43 Dose: 3.75 mls/min Documented by: [id number] Metoclopramide HCl (Metoclopramide Hcl Inj 5 Mg/Ml 2 Ml Vial) 10 mg IV Q6H PRN PRN Reason: Nausea &/or Vomiting Stop: 01/24/20 12:39 Last Admin: 12/25/19 12:59 Dose: 10 mg Documented by: [id number] Discontinued Medications Bacitracin (Bacitracin Inj 50,000 Unit Vial) Confirm Administered Dose 50,000 units .ROUTE .STK-MED ONE Stop: 12/25/19 09:28 Last Admin: 12/25/19 10:20 Dose: 50,000 units Documented by: [id number] Fentanyl Citrate (Fentanyl Citrate 100 Mcg/2 Ml Vial) 25 mcg IV Q5M PRN PRN Reason: PACU Use Only-Pain Stop: 12/25/19 17:18 Last Admin: 12/25/19 11:43 Dose: 25 mcg Documented by: [id number] Admin: 12/25/19 11:38 Dose: 25 mcg Documented by: [id number] Admin: 12/25/19 11:33 Dose: 25 mcg Documented by: [id number] Admin: 12/25/19 11:28 Dose: 25 mcg Documented by: [id number] Hydromorphone HCl (Hydromorphone Inj 1 Mg/Ml Syringe) Confirm Administered Dose 1 mg .ROUTE .STK-MED ONE Stop: 12/25/19 11:48 Last Admin: 12/25/19 13:59 Dose: Not Given Documented by: [id number] Miscellaneous ( Floseal Hemostatic Matrix 10ml) 10 ml TOP ONCE ONE Stop: 12/25/19 10:23 Last Admin: 12/25/19 10:22 Dose: 10 ml Documented by: [id number] Ondansetron HCl (Ondansetron Inj 2 Mg/Ml 2 Ml Vial) 4 mg IV ONCE PRN PRN Reason: PACU Use Only-Nausea/Vomiting Stop: 12/25/19 17:19 Last Admin: 12/25/19 11:28 Dose: 4 mg Documented by: [id number] ECG Rate (beats per minute): 61 Rhythm: normal sinus (1) Diabetic neuropathy Diabetes mellitus complication detail: diabetic polyneuropathy Diabetes mellitus type: type 2 Qualified Code(s): E11.42 - Type 2 diabetes mellitus with diabetic polyneuropathy (2) Diabetes mellitus, type 2 Diabetes mellitus complication detail: with unspecified neuropathy Diabetes mellitus complication status: with neurologic complications Diabetes mellitus senior care insulin use: without senior care use Qualified Code(s): E11.40 - Type 2 diabetes mellitus with diabetic neuropathy, unspecified (3) Hyperlipidemia Hyperlipidemia type: unspecified Qualified Code(s): E78.5 - Hyperlipidemia, unspecified (4) Hypertension Hypertension type: essential hypertension Qualified Code(s): I10 - Essential (primary) hypertension
[2019-12-25] MEDS: SODIUM CHLORIDE 0.9% 1000ML 1,000 ML IV SCH ×2 (14:33→21:44)
[2019-12-25] MEDS: INSULIN ASPART 100 UNITS/ML 3 ML PEN SC SCH ×3 (14:35→21:50)
[2019-12-25] MEDS: GABAPENTIN 600 MG TAB PO SCH ×2 (14:39→21:39)
--- NOTE | 2019-12-25 15:14 | Anesthesiology Progress Note ---
Date of Service December 25, 2019 Anesthesia Post Procedure Vital Signs Vital Signs: Temp Pulse Pulse Resp BP BP Pulse Ox 12/25/19 14:43 36.3 C L 71 12 164/70 H 97 12/25/19 13:43 36.7 C 76 12 134/74 96 12/25/19 13:35 66 16 95 12/25/19 13:10 36.8 C 65 12 157/75 H 96 12/25/19 12:40 36.8 C 56 L 16 164/74 H 95 12/25/19 12:25 36.6 C 59 L 16 150/81 H 94 12/25/19 12:15 62 16 157/84 H 94 12/25/19 12:05 62 16 161/76 H 94 12/25/19 11:55 60 16 160/84 H 97 12/25/19 11:45 58 L 16 174/83 H 97 12/25/19 11:35 54 L 16 169/85 H 97 12/25/19 11:25 65 16 168/93 H 96 12/25/19 11:19 36.3 C L 75 16 182/88 H 94 12/25/19 08:37 36.6 C 58 L 20 150/93 H 97 Pulse Ox 12/25/19 14:43 12/25/19 13:43 12/25/19 13:35 12/25/19 13:10 12/25/19 12:40 95 12/25/19 12:25 12/25/19 12:15 12/25/19 12:05 12/25/19 11:55 12/25/19 11:45 12/25/19 11:35 12/25/19 11:25 12/25/19 11:19 12/25/19 08:37 Transfer of Care Handoff Completed per policy Notes Mental Status: alert / awake / arousable and participated in evaluation Patient Amnestic to Procedure: Yes Nausea / Vomiting: adequately controlled Pain: adequately controlled Airway Patency, RR, SpO2: stable & adequate BP & HR: stable & adequate Hydration State: stable & adequate Anesthetic Complications: no major complications apparent and Pt Satisfied with anesthetic care
[2019-12-25] MEDS: ceFAZolin 2000MG 2,000 MG/15 ML SYR IV SCH (18:41)
[2019-12-25] MEDS ORDERED: CALCIUM 600MG + VIT D 400 IU TAB PO SCH (21:00)
[2019-12-25] MEDS ORDERED: RALOXIFENE HCL 60 MG TAB PO SCH (21:00)
[2019-12-25] MEDS ORDERED: CHOLECALCIFEROL 1,000 UNITS 25 MCG TAB PO SCH (21:00)
[2019-12-25] MEDS ORDERED: DOCUSATE SODIUM/SENNA 50/8.6MG TAB PO SCH (21:00)
[2019-12-25] MEDS ORDERED: ATORVASTATIN 40 MG TAB PO SCH (21:00)
[2019-12-25] MEDS: INSULIN GLARGINE SOLOSTAR 100 UNITS/ML 3 ML PEN SC SCH (21:50)
[2019-12-26] MEDS: ceFAZolin 2000MG 2,000 MG/15 ML SYR IV SCH (01:00)
[2019-12-26] MEDS ORDERED: POLYETHYLENE (MIRALAX) 17 GM PACK PO SCH (06:00)
[2019-12-26 06:03] LABS: Basophils # (auto) 0.01 K/uL (0-0.2); Basophils % (auto) 0.1 %; Eosinophils # (auto) 0.01 K/uL (0-0.5); Eosinophils % (auto) 0.1 %; Hematocrit (blood only) 36.9 % (37-47); Hemoglobin 11.9 g/dL (12.0-16.0); Immature Granulocytes # (auto) 0.03 K/uL (0.00-0.02); Immature Granulocytes % (auto) 0.3 %; Lymphocytes # (auto) 1.87 K/uL (1.2-3.4); Mean Corpuscular Hemoglobin 28.5 pg (25-34); Mean Corpuscular Hgb Conc 32.2 g/dL (32-36); Mean Corpuscular Volume 88.5 fL (80-100); Mean Platelet Volume 10.9 fL (7.4-10.4); Monocytes # (auto) 0.74 K/uL (0.11-0.59); Monocytes % (auto) 6.7 %; Neutrophils # (auto) 8.36 K/uL (1.4-6.5); Neutrophils % (auto) 75.8 %; Platelet Count 272 K/uL (130-400); RDW Coefficient of Variation 14.2 % (11.5-14.5); RDW Standard Deviation 46.2 fL (36.4-46.3); Red Blood Count 4.17 M/uL (4.2-5.4); White Blood Count 11.02 K/uL (4.8-10.8)
[2019-12-26 06:36] LABS: BUN Creatinine Ratio 18.2 (10-20); Calcium 8.7 mg/dl (8.5-10.1); Creatinine Clr Calc Pharmacy 62.8 ml/min; Est GFR (African American) 83.6; Est GFR (Non-African American) 72.1; Potassium 3.8 mmol/L (3.5-5.1)
[2019-12-26] MEDS: GABAPENTIN 600 MG TAB PO SCH (08:36)
[2019-12-26] MEDS: INSULIN GLARGINE SOLOSTAR 100 UNITS/ML 3 ML PEN SC SCH (08:37)
[2019-12-26] MEDS: INSULIN ASPART 100 UNITS/ML 3 ML PEN SC SCH (08:38)
[2019-12-26] MEDS ORDERED: FAMOTIDINE 20 MG TAB PO SCH (09:00)
[2019-12-26] MEDS ORDERED: METOPROLOL TARTRATE 50 MG TAB PO SCH (09:00)
[2019-12-26] MEDS ORDERED: NON-FORMULARY MEDICATION (Mecobalamin (Vitamin B12) [B12 Active] 1,000 mcg Tablet,Chewable PO SCH (09:00)
[2019-12-26] MEDS ORDERED: GLIMEPIRIDE 2 MG TAB PO SCH (09:00)
[2019-12-26] MEDS ORDERED: dilTIAZem HCL 240 MG CAPCR PO SCH (09:00)
[2019-12-26] MEDS ORDERED: PIOGLITAZONE HCL 15 MG TAB PO SCH (09:00)
--- NOTE | 2019-12-26 09:26 | Discharge Summary ---
Date of Service December 26, 2019 Admission HPI Per Admitting Provider This is a 74-year-old female presents with chronic persistent neck and arm symptoms after failing course of nonoperative care is here for surgical invention. Principal Diagnosis Cervical spinal stenosis with myeloradiculopathy Discharge Data Allergies Allergy/AdvReac Type Severity Reaction Status Date / Time aspirin Allergy Intermediate GI BLEEDING Verified 12/25/19 08:29 Consultations 12/25/19 12:40 Consult Hospitalist Routine Procedures Performed Operation Date: 12/25/19 09:35 Actual Procedures p C3-C4 Anterior Cervical Discectomy and Fusion, Spinal Cord Monitoring - Marlo Treviño DO Ordered Studies 12/25/19 09:35 FL cervical 2-3V Routine FL fluoroscopy <1hr Routine Hospital Course (1) Cervical stenosis of spinal canal: Patient went anterior cervical discectomy and fusion tolerated well second orthopedic for postop labor postop day #1 she is swallowing well arm symptoms improved ambulating nicely excellent strength testing LASHON drain decreased probably subsequently discharged home. Discharge orders instructions from the chart for further review. Total Time Total Time Spent Total Time Spent (In Minutes): 20 minutes Discharge Plan Discharge Items Patient Disposition: Home - Self-Care Reason For Visit: Spinal Stenosis, Cerivcal Region Discharge Diagnosis: cervical stenosis Activity: As commented below Non-emergency contact: Primary Care Provider Call non-emergency contact if: you have any medication questions Follow-up/Referrals: Magaly Velasco DO [Primary Care Provider] - Diet: Regular Addtl Attending Provider Instructions: ACTIVITY RECOMMENDATIONS: SELF CARE INSTRUCTIONS AFTER CERVICAL FUSIONS 1. No smoking. Smoking drastically decreases the chance of a solid fusion. 2. No bending, lifting more than 5 pounds, or twisting (roll like a log when turning in bed). 3. You may shower 3 days after surgery. Thoroughly dry wound. Do not soak in the tub. 4. Cervical collar: Must be worn at all times including sleeping. You may remove the brace only to bath, eat and if you are sitting in a recliner. 5. Please walk as much as you can for exercise. Gradually increase the distance that you walk as your endurance increases. SPECIAL CARE INSTRUCTIONS: VERY IMPORTANT TO READ AND REVIEW A. Do not take any anti-inflammatory medications (i.e. Indocin, Advil, Aspirin, Naprosyn, Aleve, Motrin, etc.) as these may inhibit the chance of a solid fusion. Tylenol is okay to take. B. Your surgical incision has been closed with a cosmetic suture under the skin that will dissolve in about 6 weeks. In 14 days, you can use a pair of clean scissors and cut the suture that is left outside of the skin at the ends of your incision. C. Complications are uncommon, but please contact us if you have any signs or symptoms of: 1. wound infection (fever higher than 102.5 degrees F, redness, separation of wound, drainage, or increasing pain from the incision) 2. blood clots in legs (pain, swelling, redness and warmth in legs) 3. urinary tract infection (fever higher than 102.5 degrees, burning upon urination or increased frequency of urination) 4. nerve problems (inability to walk on your toes or heels, numbness, loss of bowel or bladder control) 5. any other symptoms that concern you. D. Please call the office at if you have any concerns or questions about your operation or recovery. MANAGING PAIN AFTER SPINAL SURGERY 1. Narcotic medication is intended for short-term use and will be provided for surgical pain. Surgical pain usually lasts for a period of 4-6 weeks. Narcotic medication includes Percocet, Vicodin, Darvocet, Tylenol #3 or Lortab. 2. Longer-term pain is more appropriately treated with non-narcotic medication such as Tylenol ES. 3. Muscle spasm is not appropriately treated with narcotics. Muscle relaxers such as Soma, Flexeril or Skelaxin can be used along with Tylenol ES. 4. Remember that we all live with some "aches and pains". This is not unusual or uncommon after an injury or as we get older. 5. We will provide appropriate medication within the normal guidelines of their prescribed use. We will also be very cautious and aware of potential abuse and extended duration of patients' medication needs. 6. Please allow 2-3 days to process refills. Prescriptions will not be mailed but must be picked up at the office. FOLLOW UP VISIT: Keep your scheduled follow-up appointment. Any questions, please call the office at . Pending Studies at Discharge: No Stand-Alone Forms: My wufoo, Smoking Cessation Medications and DC Order Prescriptions: New tramadol 50 mg tablet 50 mg PO Q6H PRN (Reason: pain, moderate) Qty: 15 RF: 0 oxycodone 5 mg tablet 5 mg PO Q6H PRN (Reason: pain, severe) Qty: 15 RF: 0 Continued pioglitazone 15 mg Tablet 15 mg PO QAM RF: 0 atorvastatin 40 mg Tablet 40 mg PO PM RF: 0 gabapentin 600 mg Tablet 600 mg PO TID RF: 0 diltiazem HCl [DILT-XR] 240 mg Capsule,Ext.Rel 24h Degradable 240 mg PO QAM RF: 0 sumatriptan succinate [Imitrex] 50 mg Tablet 50 mg PO DAILY PRN (Reason: SINUS HEADACHES) RF: 0 acetaminophen 500 mg Tablet 1,000 mg PO QID PRN (Reason: Pain) RF: 0 glimepiride 2 mg Tablet 2 mg PO QAM RF: 0 metformin 1,000 mg Tablet 1,000 mg PO BID RF: 0 metoprolol tartrate 50 mg Tablet 50 mg PO QAM RF: 0 raloxifene [Evista] 60 mg Tablet 60 mg PO QPM RF: 0 calcium carbonate [Calcium 600] 600 mg calcium (1,500 mg) Tablet 600 mg PO HS RF: 0 cholecalciferol (vitamin D3) [Vitamin D3] 1,000 unit Capsule 1,000 unit PO QPM RF: 0 famotidine 20 mg Tablet 20 mg PO QAM RF: 0 Jardiance 25 mg Tablet 25 mg PO DAILY RF: 0 B12 Active 1,000 mcg Tablet,Chewable 1,000 mcg PO DAILY RF: 0 Discharge Orders: Discharge Order (Routine); Ordered 12/26/19 Ordered By: Marlo Francisco/Other Patient Handouts: High Blood Sugar (Hyperglycemia), Managing Type 2 Diabetes Admission Data Admit Date/Time: 12/25/19 11:39 Attending Provider: Marlo Treviño Admit Provider: Marlo Treviño Primary Care Provider: Magaly Velasco Other Providers: Dg Castillo ; Shira Sam I.
--- NOTE | 2019-12-26 10:13 | Anesthesiology Progress Note ---
Date of Service December 26, 2019 Anesthesia Post Procedure Vital Signs Vital Signs: Temp Pulse Pulse Resp BP BP Pulse Ox 12/26/19 09:53 36.5 C 59 L 53 L 16 150/93 H 145/79 H 92 12/26/19 07:39 36.5 C 53 L 16 145/79 H 92 12/26/19 07:02 69 18 95 12/26/19 06:02 36.3 C L 65 16 145/82 H 97 12/26/19 05:45 36.3 C L 52 L 16 173/85 H 98 12/26/19 03:46 36.4 C L 60 20 157/82 H 96 12/26/19 03:00 59 L 18 97 12/26/19 01:39 36.3 C L 48 L 18 149/75 H 97 12/25/19 23:45 36.7 C 71 18 139/77 96 12/25/19 23:02 59 L 16 97 12/25/19 22:00 36.4 C L 59 L 15 146/73 H 93 12/25/19 19:56 36.7 C 76 16 137/77 92 12/25/19 19:39 75 16 91 12/25/19 17:35 36.6 C 77 16 135/77 93 12/25/19 15:46 80 18 94 12/25/19 15:16 36.6 C 61 18 143/79 H 96 12/25/19 14:43 36.3 C L 71 12 164/70 H 97 12/25/19 13:43 36.7 C 76 12 134/74 96 12/25/19 13:35 66 16 95 12/25/19 13:10 36.8 C 65 12 157/75 H 96 12/25/19 12:40 36.8 C 56 L 16 164/74 H 95 12/25/19 12:25 36.6 C 59 L 16 150/81 H 94 12/25/19 12:15 62 16 157/84 H 94 12/25/19 12:05 62 16 161/76 H 94 12/25/19 11:55 60 16 160/84 H 97 12/25/19 11:45 58 L 16 174/83 H 97 12/25/19 11:35 54 L 16 169/85 H 97 12/25/19 11:25 65 16 168/93 H 96 12/25/19 11:19 36.3 C L 75 16 182/88 H 94 Pulse Ox 12/26/19 09:53 12/26/19 07:39 12/26/19 07:02 12/26/19 06:02 12/26/19 05:45 12/26/19 03:46 12/26/19 03:00 12/26/19 01:39 12/25/19 23:45 12/25/19 23:02 12/25/19 22:00 12/25/19 19:56 12/25/19 19:39 12/25/19 17:35 12/25/19 15:46 12/25/19 15:16 12/25/19 14:43 12/25/19 13:43 12/25/19 13:35 12/25/19 13:10 12/25/19 12:40 95 12/25/19 12:25 12/25/19 12:15 12/25/19 12:05 12/25/19 11:55 12/25/19 11:45 12/25/19 11:35 12/25/19 11:25 12/25/19 11:19 Notes Mental Status: alert / awake / arousable and participated in evaluation Patient Amnestic to Procedure: Yes Nausea / Vomiting: adequately controlled Pain: adequately controlled Airway Patency, RR, SpO2: stable & adequate BP & HR: stable & adequate Hydration State: stable & adequate Anesthetic Complications: no major complications apparent and Pt Satisfied with anesthetic care
[2019-12-26] MEDS ORDERED: metFORMIN HCL 500 MG TAB PO SCH (12:00)
[2019-12-27] MEDS ORDERED: bisacodyL 10 MG SUPP PR PRN (11:08)
== END 2019-12-26 11:27 | disposition home or self-care (01) ==
LOC: ASU 07:50 → 3E 11:39 → INTOOBSV 11:39
DX: Z85.528 Personal history of other malignant neoplasm of kidney; I10 Essential (primary) hypertension; Z96.651 Presence of right artificial knee joint; Z90.5 Acquired absence of kidney; E11.40 Type 2 diabetes mellitus with diabetic neuropathy, unspecified; E78.5 Hyperlipidemia, unspecified; Z79.899 Other long term (current) drug therapy; Z79.84 Long term (current) use of oral hypoglycemic drugs; E11.65 Type 2 diabetes mellitus with hyperglycemia; M48.02 Spinal stenosis, cervical region; M81.0 Age-related osteoporosis without current pathological fracture; M54.12 Radiculopathy, cervical region; Z88.6 Allergy status to analgesic agent